=== PATIENT | male | born 1950 | race Caucasian/White ===

== ENCOUNTER 2023-01-30 12:54 | Emergency (ER) | payer OTHER ==
[~2023-01-30] VITALS: Ht 175.3 cm; Wt 88.6 kg
[2023-01-30 12:58] VITALS: PULSE 98; RESP 20; TEMP 98.5; O2SAT 95
[2023-01-30 13:21] LABS: CLARITY,URINE CLEAR (Clear); COLOR,URINE STRAW (Yellow); GLUCOSE, URINE NEGATIVE (Neg); KETONES,URINE NEGATIVE (Neg); LEUKOCYTE ESTERASE ,URINE NEGATIVE (Neg); NITRITES, URINE NEGATIVE (Neg); OCCULT BLOOD,URINE SMALL (Neg); PH,URINE 7.5 (4.8-8.0); PROTEIN,URINE >=300 mg/dl (Neg); UROBILINOGEN,URINE 0.2 E.U/dL (0.2-1.0)
[2023-01-30 13:24] LABS: UA COLLECTION TYPE CLN CATCH MIDSTREAM
[2023-01-30 13:29] LABS: SQUAMOUS EPITHELIAL CELL,UR FEW /LPF (FEW)
[2023-01-30 13:30] LABS: BACTERIA,URINE FEW /HPF (Neg); WBC,URINE 0-4 /HPF (0-4)
[2023-01-30 13:45] LABS: BASOPHILS # (AUTO) 0.1 X10'3 (0-0.2); BASOPHILS % (AUTO) 0.8 % (0-1); EOSINOPHILS # (AUTO) 0.1 X10'3 (0-0.9); HEMATOCRIT 48.9 % (42.0-52.0); HEMOGLOBIN 15.6 g/dl (14.0-17.9); LYMPHOCYTES % (AUTO) 7.2 % (21-51); MEAN CORPUSCULAR HEMOGLOBIN 26.7 PG (27.0-31.0); MEAN CORPUSCULAR VOLUME 83.4 FL (78-98); MEAN PLATELET VOLUME 7.4 FL (7.4-10.4); MONOCYTES # (AUTO) 0.8 X10'3 (0-0.9); MONOCYTES % (AUTO) 6.2 % (2-12); NEUTROPHILS # (AUTO) 11.5 X10'3 (1.8-7.7); NEUTROPHILS % (AUTO) 84.8 % (42-75); PLATELET COUNT 261 X10'3 (140-440); RED BLOOD COUNT 5.86 X10'6 (4.70-6.10); WHITE BLOOD COUNT 13.6 X10'3 (4.5-11.0)
[2023-01-30 13:56] LABS: ALANINE AMINOTRANSFERASE 39 U/L (12-78); ALBUMIN 3.9 G/DL (3.4-5.0); ALKALINE PHOSPHATASE 80 IU/L (46-116); ANION GAP 13 (8-16); ASPARTATE AMINO TRANSFERASE 24 U/L (10-37); BILIRUBIN,TOTAL 1.4 MG/DL (0.1-1.0); BLOOD UREA NITROGEN 22 MG/DL (7-18); BUN/CREATININE RATIO 15.4 (10.0-20.0); CALCIUM 10.1 MG/DL (8.5-10.1); CHLORIDE 104 MMOL/L (99-107); CREATININE 1.43 MG/DL (0.60-1.10); GLUCOSE 135 MG/DL (70-104); LIPASE 163 U/L (73-393); POTASSIUM 3.6 MMOL/L (3.5-5.1); SODIUM 141 MMOL/L (135-145); TOTAL PROTEIN 7.8 G/DL (6.4-8.2); eGFR 49 ML/MIN
== END 2023-01-30 16:26 | disposition home or self-care (01) ==
LOC: ER 12:54
DX: R33.9 Retention of urine, unspecified (principal); E78.00 Pure hypercholesterolemia, unspecified; I12.9 Hypertensive chronic kidney disease with stage 1 through stage 4 chronic kidney disease, or unspecified chronic kidney disease; N18.2 Chronic kidney disease, stage 2 (mild)
CPT/HCPCS: 36415; 51702; 80053; 81001; 83690; 85025; 99284; A4314; A4340; A4358

== ENCOUNTER 2023-08-14 12:10 | Observation (INO) | payer MEDICARE, OTHER ==
[~2023-08-14] VITALS: Ht 175.3 cm; Wt 120.0 kg
[2023-08-14 12:43] LABS: BASOPHILS # (AUTO) 0.1 X10'3 (0-0.2); BASOPHILS % (AUTO) 0.7 % (0-1); EOSINOPHILS # (AUTO) 0.4 X10'3 (0-0.9); EOSINOPHILS % (AUTO) 3.6 % (0-6); HEMATOCRIT 51.7 % (42.0-52.0); HEMOGLOBIN 16.4 g/dl (14.0-17.9); LYMPHOCYTES # (AUTO) 1.3 X10'3 (1.1-4.8); LYMPHOCYTES % (AUTO) 12.9 % (21-51); MEAN CORPUSCULAR HEMOGLOBIN 26.1 PG (27.0-31.0); MEAN CORPUSCULAR HGB CONC 31.8 g/dL (33.0-36.5); MEAN PLATELET VOLUME 6.9 FL (7.4-10.4); MONOCYTES # (AUTO) 0.9 X10'3 (0-0.9); MONOCYTES % (AUTO) 8.7 % (2-12); NEUTROPHILS # (AUTO) 7.5 X10'3 (1.8-7.7); NEUTROPHILS % (AUTO) 74.1 % (42-75); PLATELET COUNT 207 X10'3 (140-440); RED CELL DISTRIBUTION WIDTH 15.9 % (11.5-14.5); WHITE BLOOD COUNT 10.1 X10'3 (4.5-11.0)
[2023-08-14 13:07] LABS: ALBUMIN 3.2 G/DL (3.4-5.0); ANION GAP 4 (8-16); BLOOD UREA NITROGEN 26 MG/DL (7-18); BUN/CREATININE RATIO 17.2 (10.0-20.0); CALCIUM 9.1 MG/DL (8.5-10.1); CHLORIDE 102 MMOL/L (99-107); CREATININE 1.51 MG/DL (0.60-1.10); GLUCOSE 138 MG/DL (70-104); POTASSIUM 3.8 MMOL/L (3.5-5.1); PRO BRAIN NATRIURETIC PEPTIDE 901 PG/ML (0-125); SODIUM 139 MMOL/L (135-145); TOTAL CARBON DIOXIDE 32.6 MMOL/L (24-32); eCRCL 44 ML/MIN; eGFR 46 ML/MIN
[2023-08-14 15:02] LABS: URINE AMPHETAMINE SCREEN NEGATIVE (Neg); URINE BARBITUATE SCREEN NEGATIVE (Neg); URINE BENZODIAZEPINES SCREEN NEGATIVE (Neg); URINE CANNABINOID SCREEN NEGATIVE (Neg); URINE COCAINE SCREEN NEGATIVE (Neg); URINE METHADONE SCREEN NEGATIVE (Neg); URINE OPIATE SCREEN NEGATIVE (Neg); URINE PHENCYCLIDINE SCREEN NEGATIVE (Neg)
[2023-08-14] MEDS ORDERED: magnesium Cl slow-release 64mg tablet PO PRN (15:35)
[2023-08-14] MEDS ORDERED: potassium Cl 20 mEq SR tablet PO PRN ×2 (15:35)
[2023-08-14] MEDS ORDERED: magnesium 4gm in 100ml NS 100 ML IV PRN (15:35)
[2023-08-14] MEDS ORDERED: ondansetron/PF 4mg/2ml inj IV PRN (15:35)
[2023-08-14] MEDS ORDERED: magnesium 2GM in 50ml NS 50 ML IV PRN (15:35)
[2023-08-14] MEDS ORDERED: potassium Cl 40MEQ/1/2NS 520ml 520 ML IV PRN (15:35)
[2023-08-14] MEDS ORDERED: acetaminophen 325mg tablet PO PRN ×2 (15:35)
[2023-08-14] MEDS: aspirin 325mg tablet PO ONE (15:41)
[2023-08-14] MEDS: normal saline 1000ml 1,000 ML IV SCH (16:00)
[2023-08-14] MEDS ORDERED: insulin Lispro (HumaLOG) vial - multi-dose SQ SCH (16:10)
[2023-08-14] MEDS ORDERED: glucagon, human recombinant 1mg kit SUBCUT PRN (16:10)
[2023-08-14] MEDS ORDERED: DEXTROSE 15 GM of carb/4 tabs (each vial/BOTTLE has 4 tablets) PO PRN ×2 (16:10)
[2023-08-14] MEDS ORDERED: dextrose 50%-water 50ml dispensing syringe IV PRN ×2 (16:10)
[2023-08-14] MEDS: MESSAGE TO PHARMACY PO ONE (16:13)
[2023-08-14] MEDS ORDERED: FURO40TA4 PO (17:39)
[2023-08-14] MEDS ORDERED: GLIP10TA21 PO (17:39)
[2023-08-14] MEDS ORDERED: EMPA10TA PO (17:39)
[2023-08-14] MEDS ORDERED: OLME40TA18 PO (17:39)
[2023-08-14] MEDS ORDERED: TRIA50CA2 (17:39)
[2023-08-14] MEDS ORDERED: ATOR20TA66 PO (17:39)
[2023-08-14] MEDS ORDERED: TAMSULOSIN (17:39)
[2023-08-14] MEDS ORDERED: METF-438 PO (17:39)
[2023-08-14] MEDS: insulin glargine (Lantus) pen - multi-dose SQ SCH (19:45)
[2023-08-14] MEDS: enoxaparin 40mg/0.4ml syringe SQ SCH (19:48)
[2023-08-15 06:48] LABS: BASOPHILS # (AUTO) 0.1 X10'3 (0-0.2); BASOPHILS % (AUTO) 0.6 % (0-1); EOSINOPHILS # (AUTO) 0.5 X10'3 (0-0.9); EOSINOPHILS % (AUTO) 4.9 % (0-6); HEMATOCRIT 47.2 % (42.0-52.0); HEMOGLOBIN 15.3 g/dl (14.0-17.9); LYMPHOCYTES # (AUTO) 1.2 X10'3 (1.1-4.8); LYMPHOCYTES % (AUTO) 12.6 % (21-51); MEAN CORPUSCULAR HEMOGLOBIN 26.3 PG (27.0-31.0); MEAN CORPUSCULAR HGB CONC 32.3 g/dL (33.0-36.5); MEAN CORPUSCULAR VOLUME 81.2 FL (78-98); MEAN PLATELET VOLUME 7.3 FL (7.4-10.4); MONOCYTES # (AUTO) 0.7 X10'3 (0-0.9); MONOCYTES % (AUTO) 7.5 % (2-12); NEUTROPHILS # (AUTO) 7.1 X10'3 (1.8-7.7); NEUTROPHILS % (AUTO) 74.4 % (42-75); PLATELET COUNT 213 X10'3 (140-440); RED BLOOD COUNT 5.81 X10'6 (4.70-6.10); RED CELL DISTRIBUTION WIDTH 15.7 % (11.5-14.5); WHITE BLOOD COUNT 9.5 X10'3 (4.5-11.0)
[2023-08-15 07:01] LABS: ALANINE AMINOTRANSFERASE 17 U/L (12-78); ALBUMIN 2.7 G/DL (3.4-5.0); ALBUMIN/GLOBULIN RATIO 0.8 (1.1-1.5); ALKALINE PHOSPHATASE 81 IU/L (46-116); ANION GAP 4 (8-16); ASPARTATE AMINO TRANSFERASE 11 U/L (10-37); BILIRUBIN,TOTAL 0.7 MG/DL (0.1-1.0); BLOOD UREA NITROGEN 24 MG/DL (7-18); BUN/CREATININE RATIO 18.9 (10.0-20.0); CALCIUM 8.7 MG/DL (8.5-10.1); CHLORIDE 107 MMOL/L (99-107); CREATININE 1.27 MG/DL (0.60-1.10); GLUCOSE 131 MG/DL (70-104); POTASSIUM 3.9 MMOL/L (3.5-5.1); SODIUM 140 MMOL/L (135-145); TOTAL CARBON DIOXIDE 28.8 MMOL/L (24-32); TOTAL PROTEIN 6.3 G/DL (6.4-8.2); eCRCL 53 ML/MIN; eGFR 56 ML/MIN
[2023-08-15 08:30] VITALS: RESP 20; O2SAT 96
[2023-08-15 09:30] VITALS: BP 197/77; PULSE 68; RESP 20; TEMP 97.7; O2SAT 92
[2023-08-15] MEDS: aspirin 81mg, enteric-coated 1 TAB TABLET.DR PO SCH (11:44)
[2023-08-15] MEDS: clopidogrel 75mg tablet PO SCH (11:44)
[2023-08-15 11:48] VITALS: BP_SYST 181; PULSE 75
[2023-08-15] MEDS: losartan 50mg tablet PO SCH (11:48)
[2023-08-15 12:13] VITALS: RESP 23; O2SAT 96
[2023-08-15] MEDS ORDERED: ASPI-1071 PO (12:58)
[2023-08-15] MEDS ORDERED: FURO40TA4 PO (12:58)
== END 2023-08-15 17:30 | disposition home or self-care (01) ==
LOC: ER 12:11 → ED HOLD 15:40 → ORTHO 4S 08-15 07:10
PROVIDERS: ADMIT Internal Medicine; ATTEND Internal Medicine
DX: G45.9 Transient cerebral ischemic attack, unspecified (principal); I13.0 Hypertensive heart and chronic kidney disease with heart failure and stage 1 through stage 4 chronic kidney disease, or unspecified chronic kidney disease; E11.22 Type 2 diabetes mellitus with diabetic chronic kidney disease; N18.30 Chronic kidney disease, stage 3 unspecified; I50.9 Heart failure, unspecified; N40.0 Benign prostatic hyperplasia without lower urinary tract symptoms; E78.00 Pure hypercholesterolemia, unspecified; H53.8 Other visual disturbances; Z79.82 Long term (current) use of aspirin; Z79.84 Long term (current) use of oral hypoglycemic drugs; Z79.899 Other long term (current) drug therapy
CPT/HCPCS: 36415; 70450; 70544; 70551; 71045; 80048; 80053; 80305; 82948; 83880; 84484; 85025; 93005; 93306; 93880; 96360; 96361; 96372; 97116; 97161; 97530; 99285; G0378; J1650; J1815; J7030

== ENCOUNTER 2024-01-23 22:18 | Inpatient (IN) | payer MEDICARE, OTHER ==
[~2024-01-23] VITALS: Ht 182.9 cm; Wt 116.0 kg
[~2024-01-23 22:18] MED LIST: ASPI81TA52 PO; ATOR20TA66 PO; EMPA10TA PO; ESOM40CA66 PO; FINE10TA PO; FLO0.4C PO; FURO40TA4 PO; GLIP10TA21 PO; METF-438 PO; NITR100C PO; OLME40TA18 PO; TRIA50CA2 PO
[2024-01-23] MEDS: hydrALAZINE 20mg/ml inj. IV ONE (22:35)
[2024-01-23 22:42] LABS: BASOPHILS # (AUTO) 0.1 X10'3 (0-0.2); HEMOGLOBIN 15.9 g/dl (14.0-17.9)
[2024-01-23 22:44] LABS: EOSINOPHILS # (AUTO) 0.2 X10'3 (0-0.9); EOSINOPHILS % (AUTO) 1.5 % (0-6); HEMATOCRIT 49.9 % (42.0-52.0); LYMPHOCYTES # (AUTO) 0.9 X10'3 (1.1-4.8); LYMPHOCYTES % (AUTO) 7.3 % (21-51); MEAN CORPUSCULAR HEMOGLOBIN 26.2 PG (27.0-31.0); MEAN CORPUSCULAR HGB CONC 31.8 g/dL (33.0-36.5); MEAN CORPUSCULAR VOLUME 82.4 FL (78-98); MEAN PLATELET VOLUME 7.5 FL (7.4-10.4); MONOCYTES # (AUTO) 0.8 X10'3 (0-0.9); MONOCYTES % (AUTO) 6.8 % (2-12); NEUTROPHILS # (AUTO) 9.9 X10'3 (1.8-7.7); NEUTROPHILS % (AUTO) 83.4 % (42-75); PLATELET COUNT 196 X10'3 (140-440); RED BLOOD COUNT 6.06 X10'6 (4.70-6.10); RED CELL DISTRIBUTION WIDTH 17.9 % (11.5-14.5); WHITE BLOOD COUNT 11.9 X10'3 (4.5-11.0)
[2024-01-23 22:49] LABS: ALANINE AMINOTRANSFERASE 45 U/L (12-78); ALBUMIN 3.2 G/DL (3.4-5.0); ALBUMIN/GLOBULIN RATIO 0.9 (1.1-1.5); ALKALINE PHOSPHATASE 67 IU/L (46-116); ANION GAP 8 (8-16); ASPARTATE AMINO TRANSFERASE 30 U/L (10-37); BILIRUBIN,TOTAL 1.3 MG/DL (0.1-1.0); BLOOD UREA NITROGEN 21 MG/DL (7-18); BUN/CREATININE RATIO 11.7 (10.0-20.0); CALCIUM 9.5 MG/DL (8.5-10.1); CHLORIDE 103 MMOL/L (99-107); GLUCOSE 146 MG/DL (70-104); POTASSIUM 4.5 MMOL/L (3.5-5.1); SODIUM 136 MMOL/L (135-145); TOTAL CARBON DIOXIDE 25.4 MMOL/L (24-32); TOTAL PROTEIN 6.7 G/DL (6.4-8.2); eCRCL 41 ML/MIN; eGFR 37 ML/MIN
[2024-01-23 22:57] LABS: LIPASE 80 U/L (16-77); PRO BRAIN NATRIURETIC PEPTIDE 4300 PG/ML (0-125)
[2024-01-23] MEDS: morphine 4 MG/ML inj SYRINge IV ONE (23:26)
[2024-01-23] MEDS: ondansetron/PF 4mg/2ml inj IV ONE (23:26)
[2024-01-23] MEDS: niCARDipine-NS 40mg/200ml IVPB 200 ML IV SCH (23:27)
[2024-01-24] MEDS ORDERED: FURO-149 PO (01:49)
[2024-01-24] MEDS ORDERED: ondansetron/PF 4mg/2ml inj IV PRN (02:25)
[2024-01-24] MEDS ORDERED: magnesium Cl slow-release 64mg tablet PO PRN (02:25)
[2024-01-24] MEDS ORDERED: bisacodyl 10mg suppository rectal RC PRN (02:25)
[2024-01-24] MEDS ORDERED: potassium Cl 40MEQ/1/2NS 520ml 520 ML IV PRN (02:25)
[2024-01-24] MEDS ORDERED: acetaminophen 325mg tablet PO PRN (02:25)
[2024-01-24] MEDS ORDERED: potassium Cl 20 mEq SR tablet PO PRN ×2 (02:25)
[2024-01-24] MEDS ORDERED: HYDROcodone/acetaminophen 5mg/325mg tablet PO PRN (02:25)
[2024-01-24] MEDS ORDERED: HYDROcodone/acetaminophen 10/325mg tab PO PRN (02:25)
[2024-01-24] MEDS ORDERED: PERFLUTREN PROTEIN-A MICROSPHR (Optison) 0.22 MG/ML 3ML VIAL IV PRN (02:25)
[2024-01-24] MEDS ORDERED: magnesium sulf-water 4G/100mL 100 ML IV PRN (02:25)
[2024-01-24] MEDS ORDERED: mag hydrox/Alum hydrox/simeth 30ml oral suspension PO PRN (02:25)
[2024-01-24 02:59] LABS: HEMOGLOBIN A1C 6.8 % (4.5-6.2)
[2024-01-24 03:12] LABS: CHOL/HDL RATIO 1.7 (0.00-4.99); CHOLESTEROL 108 MG/DL (0-200); HDL CHOLESTEROL 63 MG/DL (35-60); LDL CHOLESTEROL 34 MG/DL (50-100); THYROID STIMULATING HORMONE 2.72 ulU/ml (0.34-4.50); TRIGLYCERIDES 62 MG/DL (20-135)
[2024-01-24 03:24] LABS: MAGNESIUM 2.2 MG/DL (1.5-2.4)
[2024-01-24] MEDS: furosemide 10 MG/1 ML 10ml inj IV SCH (08:00)
[2024-01-24] MEDS: docusate sod 100mg capsule PO SCH (08:00)
[2024-01-24] MEDS: heparin, porcine 5000 units/ml vial SQ SCH (08:00)
[2024-01-24 08:09] LABS: CLARITY,URINE Bloody (Clear); COLOR,URINE RED (Yellow); UA COLLECTION TYPE OTHER
[2024-01-24 08:15] LABS: RBC,URINE TNTC /HPF (0-2)
[2024-01-24 08:16] LABS: WBC,URINE 50-100 /HPF (0-4)
[2024-01-24 08:17] LABS: BACTERIA,URINE FEW /HPF (Neg); SQUAMOUS EPITHELIAL CELL,UR FEW /LPF (FEW)
[2024-01-24 08:19] LABS: WBC CLUMPS,URINE FEW /HPF (NEGATIVE)
[2024-01-24] MEDS: losartan 50mg tablet PO SCH (16:14)
[2024-01-24] MEDS: atorvastatin 20mg tablet PO SCH (16:44)
[2024-01-24] MEDS: aspirin 81mg, enteric-coated 1 TAB TABLET.DR PO SCH (16:44)
[2024-01-24 17:51] VITALS: BP 137/77; PULSE 79; RESP 22; TEMP 97; O2SAT 97
[2024-01-24 17:56] VITALS: RESP 22; O2SAT 97
[2024-01-24 18:00] VITALS: BP 176/79; PULSE 76; RESP 18; TEMP 97.4; O2SAT 96
[2024-01-24 20:00] VITALS: RESP 14; O2SAT 100
[2024-01-24 22:00] VITALS: BP 179/82; PULSE 80; RESP 14; TEMP 97.5; O2SAT 100
[2024-01-24] MEDS: hydrALAZINE 20mg/ml inj. IV PRN (23:05)
[2024-01-25 00:05] VITALS: BP 129/64; PULSE 71
[2024-01-25 06:06] LABS: BASOPHILS % (AUTO) 0.5 % (0-1); EOSINOPHILS # (AUTO) 0.1 X10'3 (0-0.9); EOSINOPHILS % (AUTO) 1.1 % (0-6); HEMOGLOBIN 14.8 g/dl (14.0-17.9); LYMPHOCYTES # (AUTO) 0.7 X10'3 (1.1-4.8); LYMPHOCYTES % (AUTO) 7.2 % (21-51); MEAN CORPUSCULAR HEMOGLOBIN 26.5 PG (27.0-31.0); MEAN CORPUSCULAR HGB CONC 32.2 g/dL (33.0-36.5); MEAN CORPUSCULAR VOLUME 82.3 FL (78-98); MONOCYTES # (AUTO) 0.7 X10'3 (0-0.9); MONOCYTES % (AUTO) 7.4 % (2-12); NEUTROPHILS # (AUTO) 7.9 X10'3 (1.8-7.7); NEUTROPHILS % (AUTO) 83.8 % (42-75); PLATELET COUNT 166 X10'3 (140-440); RED BLOOD COUNT 5.59 X10'6 (4.70-6.10); RED CELL DISTRIBUTION WIDTH 17.6 % (11.5-14.5); WHITE BLOOD COUNT 9.4 X10'3 (4.5-11.0)
[2024-01-25 06:31] LABS: ALANINE AMINOTRANSFERASE 34 U/L (12-78); ALBUMIN 2.6 G/DL (3.4-5.0); ALBUMIN/GLOBULIN RATIO 0.8 (1.1-1.5); ALKALINE PHOSPHATASE 58 IU/L (46-116); ANION GAP 8 (8-16); ASPARTATE AMINO TRANSFERASE 22 U/L (10-37); BILIRUBIN,TOTAL 1.8 MG/DL (0.1-1.0); BLOOD UREA NITROGEN 18 MG/DL (7-18); CALCIUM 9.4 MG/DL (8.5-10.1); CHLORIDE 102 MMOL/L (99-107); CREATININE 1.29 MG/DL (0.60-1.10); GLUCOSE 129 MG/DL (70-104); MAGNESIUM 2.1 MG/DL (1.5-2.4); POTASSIUM 3.9 MMOL/L (3.5-5.1); SODIUM 134 MMOL/L (135-145); TOTAL CARBON DIOXIDE 24.5 MMOL/L (24-32); eCRCL 57 ML/MIN; eGFR 55 ML/MIN
[2024-01-25] MEDS: FINERENONE 10 MG PO SCH (08:00)
[2024-01-25] MEDS: furosemide 10 MG/1 ML 10ml inj IV SCH (08:03)
[2024-01-25] MEDS: tamsulosin 0.4mg capsule PO SCH (08:05)
[2024-01-25] MEDS: pantoprazole 40mg Tablet.DR PO SCH (08:05)
[2024-01-25] MEDS: magnesium hydroxide 30ml (MOM) UD suspension PO PRN (08:18)
[2024-01-25 13:56] LABS: % FREE PSA 27.7 % (.); PROSTATE SPECIFIC AG, SERUM 8.4 ng/mL (0.0-4.0); PSA, FREE 2.33 ng/mL
[2024-01-25] MEDS ORDERED: glucagon, human recombinant 1mg kit SUBCUT PRN (14:55)
[2024-01-25] MEDS ORDERED: DEXTROSE 15 GM of carb/4 tabs (each vial/BOTTLE has 4 tablets) PO PRN ×2 (14:55)
[2024-01-25] MEDS ORDERED: dextrose 50%-water 50ml dispensing syringe IV PRN ×2 (14:55)
[2024-01-25] MEDS: INSULIN LISPRO 100 UNIT/ML INSULN.PEN MULTI-DOSE SQ SCH (17:00)
[2024-01-25 18:00] VITALS: BP 154/56; PULSE 77; RESP 18; TEMP 97.9; O2SAT 95
[2024-01-25 22:00] VITALS: BP 161/68; PULSE 74; RESP 20; TEMP 97.9; O2SAT 94
[2024-01-26 05:00] VITALS: BP 177/69; PULSE 85; RESP 20; TEMP 98; O2SAT 95
[2024-01-26 06:31] LABS: BASOPHILS # (AUTO) 0.1 X10'3 (0-0.2); BASOPHILS % (AUTO) 0.7 % (0-1); EOSINOPHILS # (AUTO) 0.1 X10'3 (0-0.9); EOSINOPHILS % (AUTO) 1.6 % (0-6); HEMATOCRIT 46.8 % (42.0-52.0); HEMOGLOBIN 14.8 g/dl (14.0-17.9); LYMPHOCYTES # (AUTO) 0.8 X10'3 (1.1-4.8); LYMPHOCYTES % (AUTO) 9.2 % (21-51); MEAN CORPUSCULAR HEMOGLOBIN 25.8 PG (27.0-31.0); MEAN CORPUSCULAR HGB CONC 31.6 g/dL (33.0-36.5); MEAN CORPUSCULAR VOLUME 81.6 FL (78-98); MEAN PLATELET VOLUME 8.3 FL (7.4-10.4); MONOCYTES # (AUTO) 0.7 X10'3 (0-0.9); MONOCYTES % (AUTO) 7.6 % (2-12); NEUTROPHILS # (AUTO) 7.4 X10'3 (1.8-7.7); NEUTROPHILS % (AUTO) 80.9 % (42-75); PLATELET COUNT 175 X10'3 (140-440); RED BLOOD COUNT 5.74 X10'6 (4.70-6.10); RED CELL DISTRIBUTION WIDTH 17.5 % (11.5-14.5); WHITE BLOOD COUNT 9.1 X10'3 (4.5-11.0)
[2024-01-26 06:45] LABS: ALANINE AMINOTRANSFERASE 32 U/L (12-78); ALBUMIN 2.8 G/DL (3.4-5.0); ALBUMIN/GLOBULIN RATIO 0.8 (1.1-1.5); ALKALINE PHOSPHATASE 59 IU/L (46-116); ANION GAP 8 (8-16); ASPARTATE AMINO TRANSFERASE 21 U/L (10-37); BILIRUBIN,TOTAL 1.7 MG/DL (0.1-1.0); BLOOD UREA NITROGEN 21 MG/DL (7-18); CALCIUM 9.6 MG/DL (8.5-10.1); CHLORIDE 101 MMOL/L (99-107); CREATININE 1.31 MG/DL (0.60-1.10); GLUCOSE 130 MG/DL (70-104); MAGNESIUM 2.2 MG/DL (1.5-2.4); SODIUM 135 MMOL/L (135-145); TOTAL CARBON DIOXIDE 26.1 MMOL/L (24-32); TOTAL PROTEIN 6.5 G/DL (6.4-8.2); eCRCL 56 ML/MIN; eGFR 54 ML/MIN
[2024-01-26 08:00] VITALS: RESP 16; O2SAT 95
[2024-01-26] MEDS: HYDROcodone/acetaminophen 5mg/325mg tablet PO PRN (08:49)
[2024-01-26 10:00] VITALS: BP 153/54; PULSE 71; RESP 20; TEMP 98.1; O2SAT 98
[2024-01-26] MEDS: ciprofloxacin lact 400MG/200ML 200 ML IV SCH (12:44)
[2024-01-26 18:00] VITALS: BP 168/71; PULSE 74; RESP 18; TEMP 98.2; O2SAT 98
[2024-01-26] MEDS: ampicillin inj 1 GM in normal saline 100ml IV soln 100 ML IV SCH (18:51)
[2024-01-26 20:00] VITALS: RESP 18; O2SAT 98
[2024-01-26 22:00] VITALS: BP 156/61; PULSE 69; RESP 16; TEMP 97.8; O2SAT 98
[2024-01-27 05:00] VITALS: PULSE 92; RESP 18; TEMP 97; O2SAT 93
[2024-01-27 05:10] VITALS: RESP 16
[2024-01-27] MEDS: HYDROcodone/acetaminophen 10/325mg tab PO PRN (05:10)
[2024-01-27 05:59] LABS: BASOPHILS % (AUTO) 0.5 % (0-1); EOSINOPHILS # (AUTO) 0.2 X10'3 (0-0.9); HEMATOCRIT 45.3 % (42.0-52.0); HEMOGLOBIN 14.4 g/dl (14.0-17.9); LYMPHOCYTES # (AUTO) 0.7 X10'3 (1.1-4.8); LYMPHOCYTES % (AUTO) 9.4 % (21-51); MEAN CORPUSCULAR HEMOGLOBIN 25.8 PG (27.0-31.0); MEAN CORPUSCULAR HGB CONC 31.8 g/dL (33.0-36.5); MONOCYTES # (AUTO) 0.9 X10'3 (0-0.9); NEUTROPHILS % (AUTO) 77.1 % (42-75); PLATELET COUNT 172 X10'3 (140-440); RED BLOOD COUNT 5.58 X10'6 (4.70-6.10); RED CELL DISTRIBUTION WIDTH 17.3 % (11.5-14.5); WHITE BLOOD COUNT 7.8 X10'3 (4.5-11.0)
[2024-01-27 06:22] LABS: ALANINE AMINOTRANSFERASE 24 U/L (12-78); ALBUMIN 2.5 G/DL (3.4-5.0); ALBUMIN/GLOBULIN RATIO 0.7 (1.1-1.5); ALKALINE PHOSPHATASE 53 IU/L (46-116); ANION GAP 6 (8-16); ASPARTATE AMINO TRANSFERASE 17 U/L (10-37); BILIRUBIN,TOTAL 1.2 MG/DL (0.1-1.0); BLOOD UREA NITROGEN 20 MG/DL (7-18); BUN/CREATININE RATIO 18.9 (10.0-20.0); CALCIUM 9.2 MG/DL (8.5-10.1); CHLORIDE 103 MMOL/L (99-107); CREATININE 1.06 MG/DL (0.60-1.10); GLUCOSE 132 MG/DL (70-104); MAGNESIUM 2.3 MG/DL (1.5-2.4); POTASSIUM 3.7 MMOL/L (3.5-5.1); SODIUM 136 MMOL/L (135-145); TOTAL CARBON DIOXIDE 26.9 MMOL/L (24-32); eCRCL 69 ML/MIN; eGFR 69 ML/MIN
[2024-01-27 07:10] VITALS: BP 171/75
[2024-01-27 07:22] VITALS: BP_SYST 171; PULSE 78
[2024-01-27] MEDS: furosemide 20 MG/2 ML vial IV SCH (07:23)
[2024-01-27 17:11] LABS: LIPASE 92 U/L (16-77)
== END 2024-01-27 19:05 | disposition home or self-care (01) | DRG 698 ==
LOC: ER 22:19 → ED HOLD 01-24 02:29 → ORTHO 4S 01-24 16:50
PROVIDERS: ADMIT Internal Medicine Critical Care Medicine; ATTEND Internal Medicine
DX: S37.39XA Other injury of urethra, initial encounter (principal); I21.A1 Myocardial infarction type 2; I50.33 Acute on chronic diastolic (congestive) heart failure; I13.0 Hypertensive heart and chronic kidney disease with heart failure and stage 1 through stage 4 chronic kidney disease, or unspecified chronic kidney disease; R33.8 Other retention of urine; N40.1 Benign prostatic hyperplasia with lower urinary tract symptoms; E11.22 Type 2 diabetes mellitus with diabetic chronic kidney disease; E78.00 Pure hypercholesterolemia, unspecified; N18.9 Chronic kidney disease, unspecified; X58.XXXA Exposure to other specified factors, initial encounter; Y93.89 Activity, other specified; Y92.89 Other specified places as the place of occurrence of the external cause; Y99.8 Other external cause status; Z79.82 Long term (current) use of aspirin; Z79.84 Long term (current) use of oral hypoglycemic drugs; Z79.899 Other long term (current) drug therapy; Z91.148 Patient's other noncompliance with medication regimen for other reason
CPT/HCPCS: 36415; 71045; 80053; 80061; 81001; 82948; 83036; 83690; 83735; 83880; 84132; 84153; 84154; 84443; 84484; 85025; 87077; 87081; 87088; 87186; 93005; 93306; 96374; 96375; 97116; 97161; 97530; 99285; A4314; A4340; A4358; C1758; G0378; J0290; J0360; J0744; J1644; J1815; J1940; J2270; J2405; J3490; J7040

== ENCOUNTER 2024-02-06 20:13 | Inpatient (IN) | payer MEDICARE ==
[~2024-02-06] VITALS: Ht 175.3 cm; Wt 114.4 kg
[~2024-02-06 20:13] MED LIST changes: -EMPA10TA PO; -FURO40TA4 PO; -GLIP10TA21 PO; -NITR100C PO; -TRIA50CA2 PO
[2024-02-06 20:53] LABS: BASOPHILS # (AUTO) 0.1 X10'3 (0-0.2); EOSINOPHILS # (AUTO) 0.2 X10'3 (0-0.9); EOSINOPHILS % (AUTO) 1.8 % (0-6); HEMATOCRIT 42.9 % (42.0-52.0); HEMOGLOBIN 13.8 g/dl (14.0-17.9); LYMPHOCYTES # (AUTO) 1.2 X10'3 (1.1-4.8); LYMPHOCYTES % (AUTO) 10.6 % (21-51); MEAN CORPUSCULAR HEMOGLOBIN 26.4 PG (27.0-31.0); MEAN CORPUSCULAR HGB CONC 32.1 g/dL (33.0-36.5); MEAN CORPUSCULAR VOLUME 82.2 FL (78-98); MEAN PLATELET VOLUME 7.5 FL (7.4-10.4); MONOCYTES # (AUTO) 0.8 X10'3 (0-0.9); MONOCYTES % (AUTO) 7.1 % (2-12); NEUTROPHILS # (AUTO) 8.7 X10'3 (1.8-7.7); NEUTROPHILS % (AUTO) 79.5 % (42-75); PLATELET COUNT 218 X10'3 (140-440); RED BLOOD COUNT 5.22 X10'6 (4.70-6.10); RED CELL DISTRIBUTION WIDTH 17.5 % (11.5-14.5); WHITE BLOOD COUNT 10.9 X10'3 (4.5-11.0)
[2024-02-06 21:10] LABS: ALANINE AMINOTRANSFERASE 40 U/L (12-78); ALBUMIN 2.8 G/DL (3.4-5.0); ALKALINE PHOSPHATASE 63 IU/L (46-116); ANION GAP 9 (8-16); ASPARTATE AMINO TRANSFERASE 26 U/L (10-37); BILIRUBIN,TOTAL 1.3 MG/DL (0.1-1.0); BLOOD UREA NITROGEN 20 MG/DL (7-18); BUN/CREATININE RATIO 16.3 (10.0-20.0); CHLORIDE 106 MMOL/L (99-107); CREATININE 1.23 MG/DL (0.60-1.10); GLUCOSE 102 MG/DL (70-104); SODIUM 138 MMOL/L (135-145); TOTAL CARBON DIOXIDE 23.3 MMOL/L (24-32); TOTAL PROTEIN 5.6 G/DL (6.4-8.2); eCRCL 54 ML/MIN; eGFR 58 ML/MIN
[2024-02-06 21:16] LABS: PRO BRAIN NATRIURETIC PEPTIDE 6417 PG/ML (0-125)
[2024-02-06 21:21] LABS: POTASSIUM 3.7 MMOL/L (3.5-5.1)
[2024-02-06] MEDS ORDERED: furosemide 10 MG/1 ML 10ml inj IV ONE (22:45)
[2024-02-06] MEDS: furosemide 10 MG/1 ML 10ml inj IV ONE (23:29)
[2024-02-07] MEDS ORDERED: METF-900 PO (01:51)
[2024-02-07] MEDS ORDERED: potassium Cl 20 mEq SR tablet PO PRN (03:10)
[2024-02-07] MEDS ORDERED: albuterol 2.5 MG/3 ML nebule NEB PRN (03:10)
[2024-02-07] MEDS ORDERED: potassium Cl 40MEQ/1/2NS 520ml 520 ML IV PRN (03:10)
[2024-02-07] MEDS ORDERED: acetaminophen 325mg tablet PO PRN (03:10)
[2024-02-07] MEDS ORDERED: ondansetron/PF 4mg/2ml inj IV PRN (03:10)
[2024-02-07] MEDS ORDERED: magnesium Cl slow-release 64mg tablet PO PRN (03:10)
[2024-02-07] MEDS: PERFLUTREN PROTEIN-A MICROSPHR (Optison) 0.22 MG/ML 3ML VIAL IV ONE ×2 (03:10→08:46)
[2024-02-07] MEDS ORDERED: magnesium sulf-water 4G/100mL 100 ML IV PRN (03:10)
[2024-02-07] MEDS ORDERED: METF-438 PO (03:35)
[2024-02-07 03:37] LABS: CHOL/HDL RATIO 1.6 (0.00-4.99); CHOLESTEROL 89 MG/DL (0-200); HDL CHOLESTEROL 55 MG/DL (35-60); LDL CHOLESTEROL 30 MG/DL (50-100); TRIGLYCERIDES 35 MG/DL (20-135)
[2024-02-07 03:40] VITALS: PULSE 49; RESP 18; O2SAT 99
[2024-02-07] MEDS: pantoprazole 40mg Tablet.DR PO SCH (07:30)
[2024-02-07 07:41] LABS: APTT 27 SECONDS (22-32); INR 1.1 INR; PROTHROMBIN TIME 11.4 SECONDS (9.0-12.0)
[2024-02-07 07:43] LABS: POTASSIUM 3.4 MMOL/L (3.5-5.1)
[2024-02-07] MEDS: docusate sod 100mg capsule PO SCH (08:00)
[2024-02-07] MEDS ORDERED: furosemide 10 MG/1 ML 10ml inj IV SCH (08:00)
[2024-02-07] MEDS: tamsulosin 0.4mg capsule PO SCH (08:00)
[2024-02-07] MEDS: losartan 50mg tablet PO SCH (08:00)
[2024-02-07] MEDS ORDERED: non-formulary drug (Metformin HCl 1 TAB) PO SCH (08:00)
[2024-02-07] MEDS: heparin, porcine 5000 units/ml vial SQ SCH (08:00)
[2024-02-07] MEDS: atorvastatin 20mg tablet PO SCH (08:00)
[2024-02-07] MEDS: aspirin 81mg, enteric-coated 1 TAB TABLET.DR PO SCH (08:00)
[2024-02-07] MEDS ORDERED: metFORMIN 500mg tablet PO SCH (08:00)
[2024-02-07] MEDS ORDERED: DEXTROSE 15 GM of carb/4 tabs (each vial/BOTTLE has 4 tablets) PO PRN ×2 (10:05)
[2024-02-07] MEDS ORDERED: dextrose 50%-water 50ml dispensing syringe IV PRN ×2 (10:05)
[2024-02-07] MEDS ORDERED: glucagon, human recombinant 1mg kit SUBCUT PRN (10:05)
[2024-02-07 10:20] VITALS: PULSE 52; RESP 18; O2SAT 98
[2024-02-07 11:27] LABS: BILIRUBIN,URINE NEGATIVE (Neg); CLARITY,URINE SLIGHTLY CLOUDY (Clear); COLOR,URINE YELLOW (Yellow); GLUCOSE, URINE NEGATIVE (Neg); KETONES,URINE NEGATIVE (Neg); LEUKOCYTE ESTERASE ,URINE MODERATE (Neg); NITRITES, URINE NEGATIVE (Neg); OCCULT BLOOD,URINE SMALL (Neg); PROTEIN,URINE 30 mg/dl (Neg)
[2024-02-07 11:32] LABS: UA COLLECTION TYPE FOLEY CATH
[2024-02-07 11:38] LABS: BACTERIA,URINE 4+ /HPF (Neg); MUCUS STRANDS NONE SEEN /LPF (Neg); SQUAMOUS EPITHELIAL CELL,UR FEW /LPF (FEW); WBC CLUMPS,URINE MODERATE /HPF (NEGATIVE); WBC,URINE 50-100 /HPF (0-4)
[2024-02-07] MEDS: INSULIN LISPRO 100 UNIT/ML INSULN.PEN MULTI-DOSE SQ SCH (12:41)
[2024-02-07] MEDS: potassium Cl 20 mEq SR tablet PO PRN (14:22)
[2024-02-07 19:10] VITALS: BP 140/70; PULSE 78; RESP 18; TEMP 97.9; O2SAT 99
[2024-02-07] MEDS: HYDROcodone/acetaminophen 5mg/325mg tablet PO PRN (21:15)
[2024-02-07 22:00] VITALS: BP 145/61; PULSE 62; RESP 18; TEMP 97.2; O2SAT 99
[2024-02-08] VITALS (7 sets, daily range): BP systolic 128–168; BP diastolic 54–71; PULSE 60–70; RESP 16–20; TEMP 97.4–98.4; O2SAT 94–98
[2024-02-08 06:48] LABS: BASOPHILS # (AUTO) 0.1 X10'3 (0-0.2); BASOPHILS % (AUTO) 0.9 % (0-1); EOSINOPHILS # (AUTO) 0.3 X10'3 (0-0.9); EOSINOPHILS % (AUTO) 2.9 % (0-6); HEMATOCRIT 43.3 % (42.0-52.0); HEMOGLOBIN 14.1 g/dl (14.0-17.9); LYMPHOCYTES # (AUTO) 0.9 X10'3 (1.1-4.8); LYMPHOCYTES % (AUTO) 9.8 % (21-51); MEAN CORPUSCULAR HEMOGLOBIN 26.6 PG (27.0-31.0); MEAN CORPUSCULAR HGB CONC 32.5 g/dL (33.0-36.5); MEAN CORPUSCULAR VOLUME 81.8 FL (78-98); MEAN PLATELET VOLUME 7.8 FL (7.4-10.4); MONOCYTES # (AUTO) 0.8 X10'3 (0-0.9); MONOCYTES % (AUTO) 8.1 % (2-12); NEUTROPHILS # (AUTO) 7.3 X10'3 (1.8-7.7); NEUTROPHILS % (AUTO) 78.3 % (42-75); PLATELET COUNT 224 X10'3 (140-440); RED BLOOD COUNT 5.29 X10'6 (4.70-6.10); RED CELL DISTRIBUTION WIDTH 17.6 % (11.5-14.5); WHITE BLOOD COUNT 9.3 X10'3 (4.5-11.0)
[2024-02-08 07:07] LABS: ALANINE AMINOTRANSFERASE 36 U/L (12-78); ALBUMIN 2.8 G/DL (3.4-5.0); ALBUMIN/GLOBULIN RATIO 0.9 (1.1-1.5); ALKALINE PHOSPHATASE 65 IU/L (46-116); ANION GAP 7 (8-16); ASPARTATE AMINO TRANSFERASE 17 U/L (10-37); BLOOD UREA NITROGEN 25 MG/DL (7-18); BUN/CREATININE RATIO 18.7 (10.0-20.0); CALCIUM 9.3 MG/DL (8.5-10.1); CHLORIDE 106 MMOL/L (99-107); CREATININE 1.34 MG/DL (0.60-1.10); GLUCOSE 127 MG/DL (70-104); MAGNESIUM 1.9 MG/DL (1.5-2.4); POTASSIUM 3.9 MMOL/L (3.5-5.1); SODIUM 140 MMOL/L (135-145); TOTAL CARBON DIOXIDE 27.5 MMOL/L (24-32); TOTAL PROTEIN 5.9 G/DL (6.4-8.2); eCRCL 50 ML/MIN; eGFR 52 ML/MIN
[2024-02-08] MEDS: furosemide 20 MG/2 ML vial IV SCH ×2 (07:33→19:38)
[2024-02-08] MEDS ORDERED: furosemide 10 MG/1 ML 10ml inj IV SCH (08:00)
[2024-02-08] MEDS: CefTRIAXone/D5W-Rocephin 1gm 50 ML IV SCH (09:30)
[2024-02-08] MEDS: linezolid 600mg tablet PO SCH (19:39)
[2024-02-09] VITALS (8 sets, daily range): BP systolic 138–169; BP diastolic 49–76; PULSE 58–71; RESP 16–20; TEMP 97.5–98.2; O2SAT 91–98
[2024-02-09 05:57] LABS: % FREE PSA 20.2 % (.); PROSTATE SPECIFIC AG, SERUM 4.1 ng/mL (0.0-4.0); PSA, FREE 0.83 ng/mL
[2024-02-09 05:59] LABS: BASOPHILS # (AUTO) 0.1 X10'3 (0-0.2); BASOPHILS % (AUTO) 0.9 % (0-1); EOSINOPHILS # (AUTO) 0.2 X10'3 (0-0.9); EOSINOPHILS % (AUTO) 2.8 % (0-6); HEMATOCRIT 42.5 % (42.0-52.0); HEMOGLOBIN 13.5 g/dl (14.0-17.9); LYMPHOCYTES # (AUTO) 0.9 X10'3 (1.1-4.8); LYMPHOCYTES % (AUTO) 11.6 % (21-51); MEAN CORPUSCULAR HEMOGLOBIN 25.7 PG (27.0-31.0); MEAN CORPUSCULAR HGB CONC 31.7 g/dL (33.0-36.5); MEAN PLATELET VOLUME 7.9 FL (7.4-10.4); MONOCYTES # (AUTO) 0.7 X10'3 (0-0.9); MONOCYTES % (AUTO) 8.3 % (2-12); NEUTROPHILS # (AUTO) 6.2 X10'3 (1.8-7.7); NEUTROPHILS % (AUTO) 76.4 % (42-75); PLATELET COUNT 194 X10'3 (140-440); RED BLOOD COUNT 5.25 X10'6 (4.70-6.10); RED CELL DISTRIBUTION WIDTH 17.3 % (11.5-14.5); WHITE BLOOD COUNT 8.1 X10'3 (4.5-11.0)
[2024-02-09 06:26] LABS: ALANINE AMINOTRANSFERASE 27 U/L (12-78); ALBUMIN 2.7 G/DL (3.4-5.0); ALBUMIN/GLOBULIN RATIO 0.9 (1.1-1.5); ALKALINE PHOSPHATASE 57 IU/L (46-116); ANION GAP 5 (8-16); ASPARTATE AMINO TRANSFERASE 17 U/L (10-37); BLOOD UREA NITROGEN 24 MG/DL (7-18); BUN/CREATININE RATIO 18.8 (10.0-20.0); CALCIUM 9.2 MG/DL (8.5-10.1); CHLORIDE 105 MMOL/L (99-107); CREATININE 1.28 MG/DL (0.60-1.10); GLUCOSE 133 MG/DL (70-104); MAGNESIUM 1.9 MG/DL (1.5-2.4); POTASSIUM 3.9 MMOL/L (3.5-5.1); SODIUM 139 MMOL/L (135-145); TOTAL CARBON DIOXIDE 28.7 MMOL/L (24-32); TOTAL PROTEIN 5.7 G/DL (6.4-8.2); eCRCL 52 ML/MIN; eGFR 55 ML/MIN
[2024-02-09] MEDS: metoprolol succinate 25mg (24-HOUR) SR. Tablet PO SCH (08:13)
[2024-02-09] MEDS: EMPAGLIFLOZIN 10 MG TABLET PO SCH (08:14)
[2024-02-09] MEDS: magnesium hydroxide 30ml (MOM) UD suspension PO PRN (09:19)
[2024-02-09] MEDS: ciprofloxacin lact 400MG/200ML 200 ML IV SCH (21:12)
[2024-02-10] MEDS: mag hydrox/Alum hydrox/simeth 30ml oral suspension PO PRN (03:30)
[2024-02-10 06:27] VITALS: BP 129/59; PULSE 59; RESP 20; TEMP 98.3; O2SAT 96
[2024-02-10 06:48] LABS: BASOPHILS # (AUTO) 0.1 X10'3 (0-0.2); EOSINOPHILS # (AUTO) 0.3 X10'3 (0-0.9); EOSINOPHILS % (AUTO) 3.8 % (0-6); HEMATOCRIT 43.7 % (42.0-52.0); LYMPHOCYTES % (AUTO) 13.7 % (21-51); MEAN CORPUSCULAR HEMOGLOBIN 26.2 PG (27.0-31.0); MEAN CORPUSCULAR HGB CONC 31.9 g/dL (33.0-36.5); MEAN CORPUSCULAR VOLUME 82.2 FL (78-98); MEAN PLATELET VOLUME 8.3 FL (7.4-10.4); MONOCYTES # (AUTO) 0.7 X10'3 (0-0.9); MONOCYTES % (AUTO) 10.4 % (2-12); NEUTROPHILS # (AUTO) 5.1 X10'3 (1.8-7.7); NEUTROPHILS % (AUTO) 71.1 % (42-75); PLATELET COUNT 201 X10'3 (140-440); RED BLOOD COUNT 5.32 X10'6 (4.70-6.10); RED CELL DISTRIBUTION WIDTH 16.9 % (11.5-14.5); WHITE BLOOD COUNT 7.1 X10'3 (4.5-11.0)
[2024-02-10 06:57] LABS: ALANINE AMINOTRANSFERASE 25 U/L (12-78); ALBUMIN 2.8 G/DL (3.4-5.0); ALBUMIN/GLOBULIN RATIO 0.9 (1.1-1.5); ALKALINE PHOSPHATASE 60 IU/L (46-116); ANION GAP 6 (8-16); ASPARTATE AMINO TRANSFERASE 12 U/L (10-37); BILIRUBIN,TOTAL 0.8 MG/DL (0.1-1.0); BLOOD UREA NITROGEN 24 MG/DL (7-18); BUN/CREATININE RATIO 17.9 (10.0-20.0); CALCIUM 9.6 MG/DL (8.5-10.1); CHLORIDE 105 MMOL/L (99-107); CREATININE 1.34 MG/DL (0.60-1.10); GLUCOSE 124 MG/DL (70-104); MAGNESIUM 2.2 MG/DL (1.5-2.4); POTASSIUM 3.9 MMOL/L (3.5-5.1); SODIUM 142 MMOL/L (135-145); TOTAL CARBON DIOXIDE 31.4 MMOL/L (24-32); TOTAL PROTEIN 5.9 G/DL (6.4-8.2); eCRCL 50 ML/MIN; eGFR 52 ML/MIN
[2024-02-10 08:45] VITALS: RESP 16
[2024-02-10 10:00] VITALS: BP 159/53; PULSE 57; RESP 18; TEMP 97.6; O2SAT 96
[2024-02-10 18:00] VITALS: BP_SYST 159; BP_SYST 165; BP_DIAS 62; BP_DIAS 88; PULSE 61; RESP 16; TEMP 97.7; O2SAT 93
[2024-02-10 19:36] VITALS: PULSE 72; RESP 16; O2SAT 96
[2024-02-10 22:00] VITALS: BP 136/88; PULSE 57; RESP 16; TEMP 96; O2SAT 92
[2024-02-11 05:39] LABS: BASOPHILS # (AUTO) 0.1 X10'3 (0-0.2); EOSINOPHILS # (AUTO) 0.3 X10'3 (0-0.9); EOSINOPHILS % (AUTO) 4.4 % (0-6); HEMATOCRIT 42.3 % (42.0-52.0); HEMOGLOBIN 13.5 g/dl (14.0-17.9); LYMPHOCYTES # (AUTO) 1.1 X10'3 (1.1-4.8); LYMPHOCYTES % (AUTO) 16.2 % (21-51); MEAN CORPUSCULAR VOLUME 81.3 FL (78-98); MEAN PLATELET VOLUME 8.1 FL (7.4-10.4); MONOCYTES # (AUTO) 0.7 X10'3 (0-0.9); MONOCYTES % (AUTO) 9.4 % (2-12); NEUTROPHILS # (AUTO) 4.9 X10'3 (1.8-7.7); PLATELET COUNT 199 X10'3 (140-440); RED CELL DISTRIBUTION WIDTH 17.3 % (11.5-14.5); WHITE BLOOD COUNT 7.1 X10'3 (4.5-11.0)
[2024-02-11 05:50] LABS: ALANINE AMINOTRANSFERASE 27 U/L (12-78); ALBUMIN 2.7 G/DL (3.4-5.0); ALBUMIN/GLOBULIN RATIO 0.9 (1.1-1.5); ALKALINE PHOSPHATASE 53 IU/L (46-116); ANION GAP 7 (8-16); ASPARTATE AMINO TRANSFERASE 19 U/L (10-37); BILIRUBIN,TOTAL 0.9 MG/DL (0.1-1.0); BLOOD UREA NITROGEN 23 MG/DL (7-18); BUN/CREATININE RATIO 16.2 (10.0-20.0); CALCIUM 9.2 MG/DL (8.5-10.1); CHLORIDE 102 MMOL/L (99-107); CREATININE 1.42 MG/DL (0.60-1.10); GLUCOSE 115 MG/DL (70-104); MAGNESIUM 2.4 MG/DL (1.5-2.4); POTASSIUM 3.6 MMOL/L (3.5-5.1); SODIUM 138 MMOL/L (135-145); TOTAL CARBON DIOXIDE 29.3 MMOL/L (24-32); TOTAL PROTEIN 5.8 G/DL (6.4-8.2); eCRCL 47 ML/MIN; eGFR 49 ML/MIN
[2024-02-11 06:00] VITALS: BP 141/71; PULSE 52; RESP 14; TEMP 96.7; O2SAT 96
[2024-02-11] MEDS: furosemide 20 MG/2 ML vial IV SCH (07:32)
[2024-02-11 07:40] VITALS: BP_SYST 141; PULSE 55
[2024-02-11 08:52] VITALS: RESP 16
[2024-02-11] MEDS ORDERED: CIPR-259 PO (13:29)
[2024-02-11] MEDS ORDERED: LACT1CAP26 PO (13:29)
[2024-02-11] MEDS ORDERED: EMPA10TA PO (13:33)
[2024-02-11] MEDS ORDERED: FURO-150 PO (13:33)
[2024-02-11] MEDS ORDERED: METO-395 PO (13:33)
== END 2024-02-11 16:09 | disposition home health service (06) | DRG 291 ==
LOC: ER 20:14 → ED HOLD 02-07 03:11 → ORTHO 4S 02-07 19:08
PROVIDERS: ADMIT Internal Medicine Critical Care Medicine; ATTEND Family Medicine
DX: I13.0 Hypertensive heart and chronic kidney disease with heart failure and stage 1 through stage 4 chronic kidney disease, or unspecified chronic kidney disease (principal); I50.33 Acute on chronic diastolic (congestive) heart failure; N17.9 Acute kidney failure, unspecified; E44.1 Mild protein-calorie malnutrition; E78.00 Pure hypercholesterolemia, unspecified; K21.9 Gastro-esophageal reflux disease without esophagitis; E11.22 Type 2 diabetes mellitus with diabetic chronic kidney disease; N18.31 Chronic kidney disease, stage 3a; R33.8 Other retention of urine; N40.1 Benign prostatic hyperplasia with lower urinary tract symptoms; Z68.37 Body mass index [BMI] 37.0-37.9, adult; Z79.82 Long term (current) use of aspirin; Z79.899 Other long term (current) drug therapy; Z79.84 Long term (current) use of oral hypoglycemic drugs
CPT/HCPCS: 36415; 71045; 76700; 80053; 80061; 81001; 82140; 82948; 83735; 83880; 84132; 84153; 84154; 84484; 85025; 85610; 85730; 87077; 87081; 87088; 87186; 93005; 93308; 94760; 96374; 97161; 97530; 97535; 99291; A4314; A5200; G0378; J0696; J0744; J1644; J1815; J1940; J7040

== ENCOUNTER 2024-02-22 21:51 | Emergency (ER) | payer MEDICARE, MEDICAID ==
[~2024-02-22] VITALS: Ht 172.7 cm; Wt 86.4 kg
[~2024-02-22 21:51] MED LIST changes: +EMPA10TA PO; +FURO-150 PO; +LACT1CAP26 PO; +METO-395 PO; +POTA-206 PO
[2024-02-22 21:52] VITALS: TEMP 97.8
[2024-02-22] MEDS ORDERED: LidoCAINE 2% Topical Jelly 11mL syringe (UROJET) TOP ONE (22:25)
[2024-02-22 22:56] LABS: ANION GAP 10 (8-16); BLOOD UREA NITROGEN 25 MG/DL (7-18); BUN/CREATININE RATIO 16.4 (10.0-20.0); CALCIUM 9.3 MG/DL (8.5-10.1); CHLORIDE 107 MMOL/L (99-107); CREATININE 1.52 MG/DL (0.60-1.10); GLUCOSE 133 MG/DL (70-104); POTASSIUM 3.6 MMOL/L (3.5-5.1); SODIUM 145 MMOL/L (135-145); TOTAL CARBON DIOXIDE 28.2 MMOL/L (24-32); eCRCL 43 ML/MIN; eGFR 45 ML/MIN
[2024-02-22 23:02] LABS: ALANINE AMINOTRANSFERASE 27 U/L (12-78); ALBUMIN 2.8 G/DL (3.4-5.0); ALBUMIN/GLOBULIN RATIO 0.8 (1.1-1.5); ALKALINE PHOSPHATASE 65 IU/L (46-116); ASPARTATE AMINO TRANSFERASE 18 U/L (10-37); BILIRUBIN,TOTAL 0.9 MG/DL (0.1-1.0); TOTAL PROTEIN 6.2 G/DL (6.4-8.2)
--- NOTE | 2024-02-22 23:10 | NUR ---
PT REFUSING NEW CATHETER PLACEMENT AT THIS TIME. ATTEMPTED TO EDUCATE PT THAT HIS PRIOR CATHETER WAS PLACED FOR RETENTION AND HE NEEDED TO FOLLOW UP WITH UROLOGY AT PRIOR VISIT. PT STATES HE IS UNSURE IF HE NEEDS IT AND JUST DOESN'T KNOW WHAT TO DO. PT STATED IT IS DIFFICULT TO CARRY AROUND AND IS WORRIED HE WILL HAVE IT FOREVER. PT STATES THAT HE IS HAVING DIFFICULTY GETTING A UROLOGY APPOINTMENT BUT IT IS UNCLEAR WHETHER PT FULLY UNDERSTANDS HIS MEDICAL HISTORY.
[2024-02-23] MEDS ORDERED: CEFP100T7 PO (00:17)
[2024-02-23] MEDS ORDERED: ondansetron 4mg rapidly disintigrating tab PO ONE (00:50)
[2024-02-23 00:53] LABS: BILIRUBIN,URINE NEGATIVE (Neg); CLARITY,URINE CLEAR (Clear); COLOR,URINE STRAW (Yellow); GLUCOSE, URINE >=1000 mg/dl (Neg); KETONES,URINE NEGATIVE (Neg); LEUKOCYTE ESTERASE ,URINE NEGATIVE (Neg); NITRITES, URINE NEGATIVE (Neg); OCCULT BLOOD,URINE SMALL (Neg); PH,URINE 7.5 (4.8-8.0); PROTEIN,URINE 100 mg/dl (Neg); UROBILINOGEN,URINE 0.2 E.U/dL (0.2-1.0)
[2024-02-23 01:06] LABS: UA COLLECTION TYPE FOLEY CATH
[2024-02-23 01:14] LABS: BACTERIA,URINE FEW /HPF (Neg); SQUAMOUS EPITHELIAL CELL,UR FEW /LPF (FEW); WBC,URINE 0-4 /HPF (0-4)
[2024-02-23 01:25] VITALS: BP 191/73; PULSE 67; RESP 15; O2SAT 96
[2024-02-23 01:37] LABS: URINE AMPHETAMINE SCREEN NEGATIVE (Neg); URINE BARBITUATE SCREEN NEGATIVE (Neg); URINE BENZODIAZEPINES SCREEN NEGATIVE (Neg); URINE CANNABINOID SCREEN NEGATIVE (Neg); URINE COCAINE SCREEN NEGATIVE (Neg); URINE METHADONE SCREEN NEGATIVE (Neg); URINE OPIATE SCREEN NEGATIVE (Neg); URINE PHENCYCLIDINE SCREEN NEGATIVE (Neg)
== END 2024-02-23 01:29 | disposition home or self-care (01) ==
LOC: ER 21:52
DX: N39.0 Urinary tract infection, site not specified (principal); T83.018A Breakdown (mechanical) of other urinary catheter, initial encounter; E78.00 Pure hypercholesterolemia, unspecified; I12.9 Hypertensive chronic kidney disease with stage 1 through stage 4 chronic kidney disease, or unspecified chronic kidney disease; N18.9 Chronic kidney disease, unspecified; Z79.82 Long term (current) use of aspirin; Z79.84 Long term (current) use of oral hypoglycemic drugs; Z79.899 Other long term (current) drug therapy; Z60.2 Problems related to living alone
CPT/HCPCS: 36415; 51702; 80053; 80305; 81001; 99284; A4314

== ENCOUNTER 2024-02-25 16:26 | Emergency (ER) | payer MEDICARE, MEDICAID ==
[~2024-02-25] VITALS: Ht 172.7 cm; Wt 105.0 kg
[~2024-02-25 16:26] MED LIST changes: +CEFP100T7 PO
[2024-02-25 17:16] LABS: BILIRUBIN,URINE NEGATIVE (Neg); CLARITY,URINE CLOUDY (Clear); COLOR,URINE YELLOW (Yellow); GLUCOSE, URINE 250 mg/dl (Neg); KETONES,URINE NEGATIVE (Neg); LEUKOCYTE ESTERASE ,URINE NEGATIVE (Neg); NITRITES, URINE NEGATIVE (Neg); OCCULT BLOOD,URINE MODERATE (Neg); PROTEIN,URINE >=300 mg/dl (Neg); UROBILINOGEN,URINE 0.2 E.U/dL (0.2-1.0)
[2024-02-25 17:26] LABS: UA COLLECTION TYPE VOIDED
[2024-02-25 17:29] LABS: BACTERIA,URINE FEW /HPF (Neg); FINE GRANULAR CAST 0-3 /LPF (NEGATIVE); MUCUS STRANDS FEW /LPF (Neg); RBC,URINE 20-50 /HPF (0-2); SQUAMOUS EPITHELIAL CELL,UR FEW /LPF (FEW)
[2024-02-25 20:04] VITALS: BP 140/114; PULSE 96; RESP 14; TEMP 98; O2SAT 97
== END 2024-02-25 20:08 | disposition home or self-care (01) ==
LOC: ER 16:27
DX: N36.8 Other specified disorders of urethra (principal); T85.9XXA Unspecified complication of internal prosthetic device, implant and graft, initial encounter; E78.00 Pure hypercholesterolemia, unspecified; I12.9 Hypertensive chronic kidney disease with stage 1 through stage 4 chronic kidney disease, or unspecified chronic kidney disease; N18.9 Chronic kidney disease, unspecified; Z79.82 Long term (current) use of aspirin; Z79.2 Long term (current) use of antibiotics; Z79.899 Other long term (current) drug therapy; Z79.84 Long term (current) use of oral hypoglycemic drugs; Z60.2 Problems related to living alone
CPT/HCPCS: 81001; 87088; 99284

== ENCOUNTER 2024-03-01 08:12 | Emergency (ER) | payer MEDICARE, MEDICAID ==
[~2024-03-01] VITALS: Ht 175.3 cm; Wt 102.3 kg
[2024-03-01 10:38] LABS: BASOPHILS # (AUTO) 0.1 X10'3 (0-0.2); BASOPHILS % (AUTO) 0.9 % (0-1); EOSINOPHILS # (AUTO) 0.3 X10'3 (0-0.9); EOSINOPHILS % (AUTO) 3.3 % (0-6); HEMATOCRIT 44.5 % (42.0-52.0); MEAN CORPUSCULAR HEMOGLOBIN 26.1 PG (27.0-31.0); MEAN CORPUSCULAR HGB CONC 31.5 g/dL (33.0-36.5); MEAN CORPUSCULAR VOLUME 82.8 FL (78-98); MEAN PLATELET VOLUME 7.8 FL (7.4-10.4); MONOCYTES # (AUTO) 0.7 X10'3 (0-0.9); MONOCYTES % (AUTO) 7.3 % (2-12); NEUTROPHILS # (AUTO) 7.2 X10'3 (1.8-7.7); NEUTROPHILS % (AUTO) 77.5 % (42-75); PLATELET COUNT 195 X10'3 (140-440); RED BLOOD COUNT 5.37 X10'6 (4.70-6.10); RED CELL DISTRIBUTION WIDTH 19.3 % (11.5-14.5); WHITE BLOOD COUNT 9.2 X10'3 (4.5-11.0)
[2024-03-01 10:52] LABS: ALANINE AMINOTRANSFERASE 21 U/L (12-78); ALBUMIN 3.1 G/DL (3.4-5.0); ALBUMIN/GLOBULIN RATIO 0.9 (1.1-1.5); ALKALINE PHOSPHATASE 66 IU/L (46-116); ANION GAP 8 (8-16); ASPARTATE AMINO TRANSFERASE 20 U/L (10-37); BILIRUBIN,TOTAL 1.1 MG/DL (0.1-1.0); BLOOD UREA NITROGEN 18 MG/DL (7-18); BUN/CREATININE RATIO 14.9 (10.0-20.0); CALCIUM 9.4 MG/DL (8.5-10.1); CHLORIDE 106 MMOL/L (99-107); CREATININE 1.21 MG/DL (0.60-1.10); GLUCOSE 139 MG/DL (70-104); POTASSIUM 4.1 MMOL/L (3.5-5.1); SODIUM 139 MMOL/L (135-145); TOTAL CARBON DIOXIDE 24.7 MMOL/L (24-32); TOTAL PROTEIN 6.4 G/DL (6.4-8.2); eCRCL 55 ML/MIN; eGFR 59 ML/MIN
[2024-03-01 10:59] LABS: PRO BRAIN NATRIURETIC PEPTIDE 4220 PG/ML (0-125)
[2024-03-01] MEDS: furosemide 10 MG/1 ML 10ml inj IV ONE (11:49)
[2024-03-01 11:54] VITALS: BP 169/63; PULSE 67; RESP 18; O2SAT 97
[2024-03-01 12:24] VITALS: TEMP 97.6
[2024-03-01 12:32] LABS: BILIRUBIN,URINE NEGATIVE (Neg); CLARITY,URINE CLEAR (Clear); COLOR,URINE YELLOW (Yellow); GLUCOSE, URINE NEGATIVE (Neg); KETONES,URINE NEGATIVE (Neg); LEUKOCYTE ESTERASE ,URINE NEGATIVE (Neg); NITRITES, URINE NEGATIVE (Neg); OCCULT BLOOD,URINE TRACE-INTACT (Neg); PROTEIN,URINE 100 mg/dl (Neg); UROBILINOGEN,URINE 0.2 E.U/dL (0.2-1.0)
[2024-03-01 12:37] LABS: UA COLLECTION TYPE VOIDED
[2024-03-01 12:38] LABS: BACTERIA,URINE NONE SEEN /HPF (Neg); MUCUS STRANDS NONE SEEN /LPF (Neg); RBC,URINE 0-2 /HPF (0-2); SQUAMOUS EPITHELIAL CELL,UR FEW /LPF (FEW); WBC,URINE 0-4 /HPF (0-4)
== END 2024-03-01 12:25 | disposition home or self-care (01) ==
LOC: ER 08:12
DX: I13.0 Hypertensive heart and chronic kidney disease with heart failure and stage 1 through stage 4 chronic kidney disease, or unspecified chronic kidney disease (principal); I50.9 Heart failure, unspecified; N18.9 Chronic kidney disease, unspecified; E78.00 Pure hypercholesterolemia, unspecified; Z79.82 Long term (current) use of aspirin; Z79.899 Other long term (current) drug therapy; Z87.891 Personal history of nicotine dependence
CPT/HCPCS: 36415; 71045; 80053; 81001; 83880; 84484; 85025; 93005; 96374; 99285; J1940

== ENCOUNTER 2024-03-03 01:17 | Inpatient (IN) | payer MEDICARE, MEDICAID ==
[~2024-03-03] VITALS: Ht 175.3 cm; Wt 102.3 kg
[2024-03-03 01:55] LABS: BASOPHILS # (AUTO) 0.1 X10'3 (0-0.2); BASOPHILS % (AUTO) 0.8 % (0-1); EOSINOPHILS # (AUTO) 0.2 X10'3 (0-0.9); EOSINOPHILS % (AUTO) 2.6 % (0-6); HEMATOCRIT 43.7 % (42.0-52.0); LYMPHOCYTES % (AUTO) 10.3 % (21-51); MEAN CORPUSCULAR HEMOGLOBIN 26.2 PG (27.0-31.0); MEAN CORPUSCULAR HGB CONC 32.1 g/dL (33.0-36.5); MEAN CORPUSCULAR VOLUME 81.8 FL (78-98); MEAN PLATELET VOLUME 7.4 FL (7.4-10.4); MONOCYTES # (AUTO) 0.8 X10'3 (0-0.9); MONOCYTES % (AUTO) 8.3 % (2-12); NEUTROPHILS # (AUTO) 7.5 X10'3 (1.8-7.7); PLATELET COUNT 208 X10'3 (140-440); RED BLOOD COUNT 5.35 X10'6 (4.70-6.10); RED CELL DISTRIBUTION WIDTH 18.6 % (11.5-14.5); WHITE BLOOD COUNT 9.6 X10'3 (4.5-11.0)
[2024-03-03] MEDS: metoprolol tartrate 50mg tablet PO ONE (02:16)
[2024-03-03] MEDS: ipratropium/albuterol 3ml nebule NEB ONE (02:29)
[2024-03-03 02:31] LABS: ALBUMIN 3.1 G/DL (3.4-5.0); ANION GAP 7 (8-16); BLOOD UREA NITROGEN 17 MG/DL (7-18); BUN/CREATININE RATIO 13.7 (10.0-20.0); CALCIUM 9.8 MG/DL (8.5-10.1); CHLORIDE 106 MMOL/L (99-107); CREATININE 1.24 MG/DL (0.60-1.10); GLUCOSE 138 MG/DL (70-104); MAGNESIUM 2.2 MG/DL (1.5-2.4); PRO BRAIN NATRIURETIC PEPTIDE 6408 PG/ML (0-125); SODIUM 139 MMOL/L (135-145); TOTAL CARBON DIOXIDE 25.6 MMOL/L (24-32); eCRCL 54 ML/MIN; eGFR 57 ML/MIN
[2024-03-03 02:32] VITALS: PULSE 66; RESP 18; O2SAT 94
[2024-03-03 02:39] VITALS: PULSE 68; RESP 18; O2SAT 99
[2024-03-03] MEDS: furosemide 20MG tablet PO ONE (02:54)
[2024-03-03 04:05] LABS: ANISOCYTOSIS 2+; BURR CELLS 1+; ELLIPTOCYTES FEW; PLATELET ESTIMATE NORMAL
[2024-03-03] MEDS ORDERED: magnesium sulf-water 2g/50mL 50 ML IV PRN (05:35)
[2024-03-03] MEDS ORDERED: potassium Cl 40MEQ/1/2NS 520ml 520 ML IV PRN (05:35)
[2024-03-03] MEDS: PERFLUTREN PROTEIN-A MICROSPHR (Optison) 0.22 MG/ML 3ML VIAL IV ONE (05:35)
[2024-03-03] MEDS ORDERED: magnesium sulf-water 4G/100mL 100 ML IV PRN (05:35)
[2024-03-03] MEDS ORDERED: magnesium hydroxide 30ml (MOM) UD suspension PO PRN (05:35)
[2024-03-03] MEDS ORDERED: ondansetron/PF 4mg/2ml inj IV PRN (05:35)
[2024-03-03] MEDS ORDERED: magnesium Cl slow-release 64mg tablet PO PRN (05:35)
[2024-03-03] MEDS ORDERED: potassium Cl 20 mEq SR tablet PO PRN (05:35)
[2024-03-03] MEDS ORDERED: mag hydrox/Alum hydrox/simeth 30ml oral suspension PO PRN (05:35)
[2024-03-03] MEDS ORDERED: glucagon, human recombinant 1mg kit SUBCUT PRN (06:35)
[2024-03-03] MEDS ORDERED: DEXTROSE 15 GM of carb/4 tabs (each vial/BOTTLE has 4 tablets) PO PRN ×2 (06:35)
[2024-03-03] MEDS ORDERED: dextrose 50%-water 50ml dispensing syringe IV PRN ×2 (06:35)
[2024-03-03] MEDS: docusate sod 100mg capsule PO SCH (07:20)
[2024-03-03] MEDS: furosemide 10 MG/1 ML 10ml inj IV SCH (07:20)
[2024-03-03 07:59] LABS: POTASSIUM 3.8 MMOL/L (3.5-5.1)
[2024-03-03] MEDS: K and/or MAG REPLACEMENT MC SCH (08:26)
[2024-03-03] MEDS: INSULIN LISPRO 100 UNIT/ML INSULN.PEN MULTI-DOSE SQ SCH (08:49)
[2024-03-03 09:00] LABS: BILIRUBIN,URINE NEGATIVE (Neg); CLARITY,URINE CLEAR (Clear); COLOR,URINE YELLOW (Yellow); GLUCOSE, URINE NEGATIVE (Neg); KETONES,URINE NEGATIVE (Neg); LEUKOCYTE ESTERASE ,URINE NEGATIVE (Neg); NITRITES, URINE NEGATIVE (Neg); OCCULT BLOOD,URINE SMALL (Neg); PH,URINE 6.5 (4.8-8.0); PROTEIN,URINE 100 mg/dl (Neg); UROBILINOGEN,URINE 0.2 E.U/dL (0.2-1.0)
[2024-03-03 09:06] LABS: UA COLLECTION TYPE CLN CATCH MIDSTREAM
[2024-03-03 09:12] LABS: BACTERIA,URINE NONE SEEN /HPF (Neg); SQUAMOUS EPITHELIAL CELL,UR FEW /LPF (FEW); WBC,URINE 0-4 /HPF (0-4)
[2024-03-03 18:45] VITALS: BP 195/92; PULSE 84; RESP 25; TEMP 97.3; O2SAT 98
[2024-03-03 19:45] VITALS: BP 195/92; RESP 25; TEMP 97.3; O2SAT 98
[2024-03-03] MEDS: metoprolol succinate 25mg (24-HOUR) SR. Tablet PO SCH (20:46)
[2024-03-03 22:00] VITALS: BP 155/70; PULSE 64; RESP 16; TEMP 98.1; O2SAT 97
[2024-03-03] MEDS ORDERED: FLUT1BLS16 INH (22:03)
[2024-03-04] VITALS (11 sets, daily range): BP systolic 146–182; BP diastolic 69–84; PULSE 61–86; RESP 16–23; TEMP 97.3–98.2; O2SAT 93–97
[2024-03-04] MEDS: hydrALAZINE 20mg/ml inj. IV SCH (02:54)
[2024-03-04 06:18] LABS: BASOPHILS # (AUTO) 0.1 X10'3 (0-0.2); BASOPHILS % (AUTO) 0.7 % (0-1); EOSINOPHILS # (AUTO) 0.3 X10'3 (0-0.9); EOSINOPHILS % (AUTO) 2.6 % (0-6); HEMATOCRIT 44.8 % (42.0-52.0); HEMOGLOBIN 14.2 g/dl (14.0-17.9); LYMPHOCYTES # (AUTO) 0.9 X10'3 (1.1-4.8); MEAN CORPUSCULAR HEMOGLOBIN 26.2 PG (27.0-31.0); MEAN CORPUSCULAR HGB CONC 31.6 g/dL (33.0-36.5); MEAN PLATELET VOLUME 7.8 FL (7.4-10.4); MONOCYTES # (AUTO) 0.6 X10'3 (0-0.9); MONOCYTES % (AUTO) 6.5 % (2-12); NEUTROPHILS % (AUTO) 81.2 % (42-75); PLATELET COUNT 191 X10'3 (140-440); WHITE BLOOD COUNT 9.9 X10'3 (4.5-11.0)
[2024-03-04 06:28] LABS: INR 1.1 INR; PROTHROMBIN TIME 11.1 SECONDS (9.0-12.0)
[2024-03-04 06:33] LABS: ALANINE AMINOTRANSFERASE 26 U/L (12-78); ALBUMIN 2.7 G/DL (3.4-5.0); ALBUMIN/GLOBULIN RATIO 0.9 (1.1-1.5); ALKALINE PHOSPHATASE 60 IU/L (46-116); ANION GAP 9 (8-16); ASPARTATE AMINO TRANSFERASE 19 U/L (10-37); BILIRUBIN,TOTAL 1.5 MG/DL (0.1-1.0); BLOOD UREA NITROGEN 21 MG/DL (7-18); BUN/CREATININE RATIO 19.6 (10.0-20.0); CALCIUM 9.2 MG/DL (8.5-10.1); CHLORIDE 108 MMOL/L (99-107); CHOL/HDL RATIO 1.9 (0.00-4.99); CHOLESTEROL 122 MG/DL (0-200); CREATININE 1.07 MG/DL (0.60-1.10); GLUCOSE 162 MG/DL (70-104); HDL CHOLESTEROL 64 MG/DL (35-60); LDL CHOLESTEROL 45 MG/DL (50-100); POTASSIUM 3.7 MMOL/L (3.5-5.1); SODIUM 145 MMOL/L (135-145); TOTAL CARBON DIOXIDE 27.6 MMOL/L (24-32); TOTAL PROTEIN 5.8 G/DL (6.4-8.2); TRIGLYCERIDES 48 MG/DL (20-135); eCRCL 62 ML/MIN; eGFR 68 ML/MIN
[2024-03-04] MEDS: nitroGLYCERIN 0.4mg/hour patch TD SCH (08:41)
[2024-03-04] MEDS: atorvastatin 20mg tablet PO SCH (12:58)
[2024-03-04] MEDS: aspirin 81mg, enteric-coated 1 TAB TABLET.DR PO SCH (12:58)
[2024-03-04] MEDS: acetaminophen 325mg tablet PO PRN (16:05)
[2024-03-04] MEDS: albuterol 2.5 MG/3 ML nebule NEB PRN (19:51)
[2024-03-04] MEDS: furosemide 40mg/4ml inj IV SCH (20:56)
[2024-03-04] MEDS: nystatin 15 GM powder TP SCH (21:55)
[2024-03-05 02:00] VITALS: BP 151/76; PULSE 68; RESP 23; TEMP 97.9; O2SAT 93
[2024-03-05 06:01] LABS: BASOPHILS # (AUTO) 0.1 X10'3 (0-0.2); BASOPHILS % (AUTO) 0.6 % (0-1); EOSINOPHILS # (AUTO) 0.2 X10'3 (0-0.9); EOSINOPHILS % (AUTO) 1.8 % (0-6); HEMATOCRIT 43.7 % (42.0-52.0); HEMOGLOBIN 13.9 g/dl (14.0-17.9); LYMPHOCYTES # (AUTO) 0.8 X10'3 (1.1-4.8); LYMPHOCYTES % (AUTO) 7.9 % (21-51); MEAN CORPUSCULAR HEMOGLOBIN 26.3 PG (27.0-31.0); MEAN CORPUSCULAR HGB CONC 31.8 g/dL (33.0-36.5); MEAN CORPUSCULAR VOLUME 82.8 FL (78-98); MONOCYTES # (AUTO) 0.7 X10'3 (0-0.9); MONOCYTES % (AUTO) 7.3 % (2-12); NEUTROPHILS # (AUTO) 8.2 X10'3 (1.8-7.7); NEUTROPHILS % (AUTO) 82.4 % (42-75); PLATELET COUNT 195 X10'3 (140-440); RED BLOOD COUNT 5.29 X10'6 (4.70-6.10); RED CELL DISTRIBUTION WIDTH 18.9 % (11.5-14.5); WHITE BLOOD COUNT 9.9 X10'3 (4.5-11.0)
[2024-03-05 06:05] LABS: INR 1.1 INR; PROTHROMBIN TIME 11.2 SECONDS (9.0-12.0)
[2024-03-05 06:17] LABS: ALANINE AMINOTRANSFERASE 23 U/L (12-78); ALBUMIN 2.9 G/DL (3.4-5.0); ALBUMIN/GLOBULIN RATIO 0.9 (1.1-1.5); ALKALINE PHOSPHATASE 63 IU/L (46-116); ANION GAP 7 (8-16); ASPARTATE AMINO TRANSFERASE 19 U/L (10-37); BILIRUBIN,TOTAL 1.7 MG/DL (0.1-1.0); BLOOD UREA NITROGEN 22 MG/DL (7-18); BUN/CREATININE RATIO 21.2 (10.0-20.0); CALCIUM 9.7 MG/DL (8.5-10.1); CHLORIDE 105 MMOL/L (99-107); CREATININE 1.04 MG/DL (0.60-1.10); GLUCOSE 170 MG/DL (70-104); POTASSIUM 3.3 MMOL/L (3.5-5.1); SODIUM 139 MMOL/L (135-145); TOTAL CARBON DIOXIDE 27.4 MMOL/L (24-32); TOTAL PROTEIN 6.3 G/DL (6.4-8.2); eCRCL 64 ML/MIN; eGFR 70 ML/MIN
[2024-03-05 07:13] VITALS: BP 190/68; PULSE 61; RESP 21; TEMP 98.2; O2SAT 94
[2024-03-05] MEDS: EMPAGLIFLOZIN 10 MG TABLET PO SCH (07:24)
[2024-03-05] MEDS: potassium chloride 10mEq ER tablet PO SCH (07:24)
[2024-03-05] MEDS: FINERENONE PO SCH (07:24)
[2024-03-05] MEDS: pantoprazole 40mg Tablet.DR PO SCH (07:24)
[2024-03-05] MEDS: potassium Cl 20 mEq SR tablet PO PRN (07:24)
[2024-03-05] MEDS: tamsulosin 0.4mg capsule PO SCH (07:24)
[2024-03-05] MEDS: losartan 50mg tablet PO SCH (07:25)
[2024-03-05 07:30] VITALS: RESP 21; O2SAT 94
[2024-03-05] MEDS: metoprolol succinate 25mg (24-HOUR) SR. Tablet PO SCH (07:32)
[2024-03-05] MEDS ORDERED: FURO-150 PO (09:40)
[2024-03-05] MEDS ORDERED: METF-1203 PO (09:40)
[2024-03-05] MEDS ORDERED: FLO0.4C PO (09:40)
[2024-03-05 09:54] VITALS: BP 115/61; PULSE 66
[2024-03-05] MEDS: [UNRECOGNIZED DRUG - OTHER] PO SCH (11:40)
[2024-03-05 11:50] VITALS: BP 129/50; PULSE 90; RESP 23; TEMP 97.4; O2SAT 93
[2024-03-05] MEDS ORDERED: FURO40TA4 PO (17:53)
== END 2024-03-05 15:00 | disposition home health service (06) | DRG 280 ==
LOC: ER 01:17 → ED HOLD 05:38 → UNDOADMIN 05:38 → ED HOLD 05:50 → PCU 3S 19:29
PROVIDERS: ADMIT Internal Medicine Critical Care Medicine; ATTEND Internal Medicine
DX: I13.0 Hypertensive heart and chronic kidney disease with heart failure and stage 1 through stage 4 chronic kidney disease, or unspecified chronic kidney disease (principal); I50.33 Acute on chronic diastolic (congestive) heart failure; I21.A1 Myocardial infarction type 2; I35.1 Nonrheumatic aortic (valve) insufficiency; E78.00 Pure hypercholesterolemia, unspecified; R09.02 Hypoxemia; E66.9 Obesity, unspecified; N18.9 Chronic kidney disease, unspecified; E11.22 Type 2 diabetes mellitus with diabetic chronic kidney disease; N40.1 Benign prostatic hyperplasia with lower urinary tract symptoms; Z79.82 Long term (current) use of aspirin; Z79.899 Other long term (current) drug therapy; Z79.84 Long term (current) use of oral hypoglycemic drugs; Z68.33 Body mass index [BMI] 33.0-33.9, adult; R33.8 Other retention of urine
CPT/HCPCS: 36415; 71045; 80048; 80053; 80061; 81001; 82948; 83735; 83880; 84132; 84484; 85008; 85025; 85610; 87081; 93005; 94640; 94760; 96374; 97161; 97530; 99285; 99291; A4649; A6250; A6446; A6449; G0378; J0360; J1815; J1940

== ENCOUNTER 2024-03-09 12:28 | Observation (INO) | payer MEDICARE, MEDICAID ==
[~2024-03-09] VITALS: Ht 175.3 cm; Wt 107.4 kg
[~2024-03-09 12:28] MED LIST changes: -CEFP100T7 PO; +FLUT1BLS16 INH; -FURO-150 PO; +FURO40TA4 PO; -LACT1CAP26 PO; +METF-1203 PO; -METF-438 PO
[2024-03-09] MEDS: ondansetron/PF 4mg/2ml inj IV ONE (13:39)
[2024-03-09] MEDS: morphine 4 MG/ML inj SYRINge IV ONE (13:39)
[2024-03-09 14:02] LABS: BASOPHILS # (AUTO) 0.1 X10'3 (0-0.2); BASOPHILS % (AUTO) 1.4 % (0-1); EOSINOPHILS # (AUTO) 0.2 X10'3 (0-0.9); HEMATOCRIT 42.7 % (42.0-52.0); HEMOGLOBIN 13.6 g/dl (14.0-17.9); LYMPHOCYTES # (AUTO) 0.8 X10'3 (1.1-4.8); LYMPHOCYTES % (AUTO) 8.5 % (21-51); MEAN CORPUSCULAR HEMOGLOBIN 26.4 PG (27.0-31.0); MEAN CORPUSCULAR HGB CONC 31.8 g/dL (33.0-36.5); MEAN PLATELET VOLUME 7.5 FL (7.4-10.4); MONOCYTES # (AUTO) 0.6 X10'3 (0-0.9); MONOCYTES % (AUTO) 6.7 % (2-12); NEUTROPHILS # (AUTO) 7.3 X10'3 (1.8-7.7); NEUTROPHILS % (AUTO) 81.4 % (42-75); PLATELET COUNT 211 X10'3 (140-440); RED BLOOD COUNT 5.15 X10'6 (4.70-6.10); RED CELL DISTRIBUTION WIDTH 18.1 % (11.5-14.5); WHITE BLOOD COUNT 8.9 X10'3 (4.5-11.0)
[2024-03-09 14:04] LABS: ALANINE AMINOTRANSFERASE 19 U/L (12-78); ALBUMIN 2.9 G/DL (3.4-5.0); ALBUMIN/GLOBULIN RATIO 0.9 (1.1-1.5); ALKALINE PHOSPHATASE 71 IU/L (46-116); ANION GAP 6 (8-16); ASPARTATE AMINO TRANSFERASE 24 U/L (10-37); BILIRUBIN,TOTAL 0.6 MG/DL (0.1-1.0); BLOOD UREA NITROGEN 18 MG/DL (7-18); BUN/CREATININE RATIO 16.5 (10.0-20.0); CALCIUM 9.4 MG/DL (8.5-10.1); CHLORIDE 104 MMOL/L (99-107); CREATININE 1.09 MG/DL (0.60-1.10); GLUCOSE 146 MG/DL (70-104); POTASSIUM 4.2 MMOL/L (3.5-5.1); SODIUM 136 MMOL/L (135-145); TOTAL CARBON DIOXIDE 26.5 MMOL/L (24-32); TOTAL PROTEIN 6.2 G/DL (6.4-8.2); eCRCL 61 ML/MIN; eGFR 66 ML/MIN
[2024-03-09] MEDS ORDERED: ondansetron/PF 4mg/2ml inj IV PRN (14:15)
[2024-03-09] MEDS ORDERED: morphine 2 MG/ML inj. syringe IV PRN (14:15)
[2024-03-09] MEDS ORDERED: magnesium Cl slow-release 64mg tablet PO PRN (14:15)
[2024-03-09] MEDS ORDERED: magnesium sulf-water 2g/50mL 50 ML IV PRN (14:15)
[2024-03-09] MEDS ORDERED: potassium Cl 20 mEq SR tablet PO PRN ×2 (14:15)
[2024-03-09] MEDS ORDERED: acetaminophen 325mg tablet PO PRN (14:15)
[2024-03-09] MEDS ORDERED: magnesium sulf-water 4G/100mL 100 ML IV PRN (14:15)
[2024-03-09] MEDS ORDERED: potassium Cl 40MEQ/1/2NS 520ml 520 ML IV PRN (14:15)
[2024-03-09] MEDS: HYDROcodone/acetaminophen 5mg/325mg tablet PO ONE (15:43)
[2024-03-09] MEDS: metoprolol succinate 25mg (24-HOUR) SR. Tablet PO SCH (15:44)
[2024-03-09] MEDS: normal saline 1000ml 1,000 ML IV SCH (15:49)
[2024-03-09 18:05] VITALS: BP 165/89; PULSE 82; RESP 14; TEMP 98.1; O2SAT 93
[2024-03-09] MEDS: losartan 50mg tablet PO SCH (20:00)
[2024-03-09] MEDS: metFORMIN 500mg tablet PO SCH (20:01)
[2024-03-09] MEDS: tamsulosin 0.4mg capsule PO SCH (20:01)
[2024-03-09] MEDS: HYDROcodone/acetaminophen 10/325mg tab PO PRN (20:02)
[2024-03-09] MEDS: heparin, porcine 5000 units/ml vial SQ SCH (20:02)
[2024-03-09] MEDS: morphine 2 MG/ML inj. syringe IV PRN (21:37)
[2024-03-09 22:00] VITALS: BP 167/84; PULSE 75; RESP 18; TEMP 96.8; O2SAT 97
[2024-03-10 05:58] LABS: BASOPHILS # (AUTO) 0.1 X10'3 (0-0.2); BASOPHILS % (AUTO) 0.8 % (0-1); EOSINOPHILS # (AUTO) 0.3 X10'3 (0-0.9); EOSINOPHILS % (AUTO) 3.1 % (0-6); HEMATOCRIT 43.6 % (42.0-52.0); HEMOGLOBIN 13.8 g/dl (14.0-17.9); LYMPHOCYTES # (AUTO) 1.1 X10'3 (1.1-4.8); LYMPHOCYTES % (AUTO) 13.2 % (21-51); MEAN CORPUSCULAR HEMOGLOBIN 26.3 PG (27.0-31.0); MEAN CORPUSCULAR HGB CONC 31.6 g/dL (33.0-36.5); MEAN CORPUSCULAR VOLUME 83.1 FL (78-98); MEAN PLATELET VOLUME 7.7 FL (7.4-10.4); MONOCYTES # (AUTO) 0.6 X10'3 (0-0.9); MONOCYTES % (AUTO) 7.7 % (2-12); NEUTROPHILS # (AUTO) 6.3 X10'3 (1.8-7.7); NEUTROPHILS % (AUTO) 75.2 % (42-75); PLATELET COUNT 193 X10'3 (140-440); RED BLOOD COUNT 5.25 X10'6 (4.70-6.10); RED CELL DISTRIBUTION WIDTH 18.4 % (11.5-14.5); WHITE BLOOD COUNT 8.4 X10'3 (4.5-11.0)
[2024-03-10 06:00] VITALS: BP 146/62; PULSE 65; RESP 24; TEMP 96.8; O2SAT 99
[2024-03-10 06:23] LABS: ALANINE AMINOTRANSFERASE 22 U/L (12-78); ALBUMIN 2.8 G/DL (3.4-5.0); ALBUMIN/GLOBULIN RATIO 0.9 (1.1-1.5); ALKALINE PHOSPHATASE 68 IU/L (46-116); ANION GAP 7 (8-16); ASPARTATE AMINO TRANSFERASE 23 U/L (10-37); BILIRUBIN,TOTAL 0.8 MG/DL (0.1-1.0); BLOOD UREA NITROGEN 19 MG/DL (7-18); CALCIUM 9.4 MG/DL (8.5-10.1); CHLORIDE 102 MMOL/L (99-107); CREATININE 1.19 MG/DL (0.60-1.10); GLUCOSE 158 MG/DL (70-104); POTASSIUM 4.8 MMOL/L (3.5-5.1); SODIUM 135 MMOL/L (135-145); TOTAL CARBON DIOXIDE 26.3 MMOL/L (24-32); eCRCL 56 ML/MIN; eGFR 60 ML/MIN
[2024-03-10 06:35] LABS: HEMOGLOBIN A1C 6.9 % (4.5-6.2)
[2024-03-10] MEDS: aspirin 81mg, enteric-coated 1 TAB TABLET.DR PO SCH (07:28)
[2024-03-10] MEDS: EMPAGLIFLOZIN 10 MG TABLET PO SCH (07:28)
[2024-03-10] MEDS: spironolactone 25 MG tablet PO SCH (07:29)
[2024-03-10] MEDS: pantoprazole 40mg Tablet.DR PO SCH (07:29)
[2024-03-10] MEDS ORDERED: ipratropium/albuterol 3ml nebule NEB PRN (08:00)
[2024-03-10] MEDS ORDERED: albuterol 2.5 MG/3 ML nebule NEB PRN (08:00)
[2024-03-10] MEDS: furosemide 20 MG/2 ML vial IV SCH (09:17)
[2024-03-10 11:00] VITALS: BP 165/66; PULSE 68; RESP 18; TEMP 97.3; O2SAT 94
[2024-03-10] MEDS: HYDROcodone/acetaminophen 5mg/325mg tablet PO PRN (11:03)
[2024-03-10 12:51] VITALS: PULSE 68; RESP 20; O2SAT 93
[2024-03-10] MEDS ORDERED: ACET-1008 PO (16:23)
[2024-03-10] MEDS: acetaminophen 325mg tablet PO PRN (17:15)
[2024-03-10 17:30] VITALS: O2SAT 97
== END 2024-03-10 17:30 | disposition home or self-care (01) ==
LOC: ER 12:28 → ED HOLD 14:20 → ORTHO 4S 18:41
PROVIDERS: ADMIT Internal Medicine; ATTEND Internal Medicine
DX: S82.141A Displaced bicondylar fracture of right tibia, initial encounter for closed fracture (principal); Z20.822 Contact with and (suspected) exposure to COVID-19; S89.91XA Unspecified injury of right lower leg, initial encounter; I13.0 Hypertensive heart and chronic kidney disease with heart failure and stage 1 through stage 4 chronic kidney disease, or unspecified chronic kidney disease; E11.22 Type 2 diabetes mellitus with diabetic chronic kidney disease; N18.9 Chronic kidney disease, unspecified; I50.9 Heart failure, unspecified; N40.0 Benign prostatic hyperplasia without lower urinary tract symptoms; E78.00 Pure hypercholesterolemia, unspecified; Z79.82 Long term (current) use of aspirin; Z79.84 Long term (current) use of oral hypoglycemic drugs; W19.XXXA Unspecified fall, initial encounter; Y93.16 Activity, rowing, canoeing, kayaking, rafting and tubing; Y92.89 Other specified places as the place of occurrence of the external cause; Y99.8 Other external cause status
CPT/HCPCS: 73564; 73721; 80053; 82948; 83036; 87811; 93005; 94760; 96361; 96372; 96374; 96375; 97161; 99284; G0378; 36415; 71045; 85025; 87081; 96376; 97116; 97530; J1644; J1940; J2270; J2405; J7030

== ENCOUNTER 2024-03-16 00:30 | Inpatient (IN) | payer MEDICARE, MEDICAID ==
[~2024-03-16] VITALS: Ht 175.3 cm; Wt 106.7 kg
[~2024-03-16 00:30] MED LIST changes: +ACET-1008 PO
[2024-03-16 01:15] LABS: BASOPHILS # (AUTO) 0.1 X10'3 (0-0.2); BASOPHILS % (AUTO) 1.1 % (0-1); EOSINOPHILS # (AUTO) 0.3 X10'3 (0-0.9); EOSINOPHILS % (AUTO) 2.3 % (0-6); HEMATOCRIT 43.1 % (42.0-52.0); HEMOGLOBIN 13.6 g/dl (14.0-17.9); LYMPHOCYTES # (AUTO) 1.2 X10'3 (1.1-4.8); LYMPHOCYTES % (AUTO) 10.6 % (21-51); MEAN CORPUSCULAR HEMOGLOBIN 26.2 PG (27.0-31.0); MEAN CORPUSCULAR HGB CONC 31.6 g/dL (33.0-36.5); MEAN CORPUSCULAR VOLUME 82.8 FL (78-98); MEAN PLATELET VOLUME 7.1 FL (7.4-10.4); MONOCYTES # (AUTO) 0.9 X10'3 (0-0.9); MONOCYTES % (AUTO) 7.8 % (2-12); NEUTROPHILS # (AUTO) 8.6 X10'3 (1.8-7.7); NEUTROPHILS % (AUTO) 78.2 % (42-75); PLATELET COUNT 209 X10'3 (140-440); RED CELL DISTRIBUTION WIDTH 17.7 % (11.5-14.5)
[2024-03-16 01:36] LABS: ANION GAP 8 (8-16); BILIRUBIN,TOTAL 0.8 MG/DL (0.1-1.0); BLOOD UREA NITROGEN 23 MG/DL (7-18); CALCIUM 9.2 MG/DL (8.5-10.1); CHLORIDE 107 MMOL/L (99-107); CREATININE 1.44 MG/DL (0.60-1.10); GLUCOSE 174 MG/DL (70-104); POTASSIUM 4.3 MMOL/L (3.5-5.1); SODIUM 140 MMOL/L (135-145); TOTAL CARBON DIOXIDE 24.7 MMOL/L (24-32); TOTAL PROTEIN 6.4 G/DL (6.4-8.2); eCRCL 46 ML/MIN; eGFR 48 ML/MIN
[2024-03-16 01:37] LABS: ALANINE AMINOTRANSFERASE 17 U/L (12-78); ALBUMIN/GLOBULIN RATIO 0.9 (1.1-1.5); ALKALINE PHOSPHATASE 81 IU/L (46-116); ASPARTATE AMINO TRANSFERASE 16 U/L (10-37)
[2024-03-16 01:44] LABS: PRO BRAIN NATRIURETIC PEPTIDE 4676 PG/ML (0-125)
[2024-03-16] MEDS: furosemide 10 MG/1 ML 10ml inj IV ONE (02:43)
[2024-03-16] MEDS ORDERED: nitroGLYCERIN 25mg/250mL D5W 250 ML IV SCH (03:20)
[2024-03-16] MEDS: nitroGLYCERIN-Tridil 50MG/D5W 250 ML IV SCH (03:32)
[2024-03-16] MEDS ORDERED: magnesium sulf-water 4G/100mL 100 ML IV PRN (04:20)
[2024-03-16] MEDS ORDERED: mag hydrox/Alum hydrox/simeth 30ml oral suspension PO PRN (04:20)
[2024-03-16] MEDS ORDERED: magnesium hydroxide 30ml (MOM) UD suspension PO PRN (04:20)
[2024-03-16] MEDS ORDERED: magnesium Cl slow-release 64mg tablet PO PRN (04:20)
[2024-03-16] MEDS ORDERED: potassium Cl 20 mEq SR tablet PO PRN ×2 (04:20)
[2024-03-16] MEDS ORDERED: ondansetron/PF 4mg/2ml inj IV PRN (04:20)
[2024-03-16] MEDS ORDERED: potassium Cl 40MEQ/1/2NS 520ml 520 ML IV PRN (04:20)
[2024-03-16] MEDS ORDERED: magnesium sulf-water 2g/50mL 50 ML IV PRN (04:20)
[2024-03-16 04:29] LABS: BILIRUBIN,URINE NEGATIVE (Neg); CLARITY,URINE CLEAR (Clear); COLOR,URINE STRAW (Yellow); GLUCOSE, URINE 500 mg/dl (Neg); KETONES,URINE NEGATIVE (Neg); LEUKOCYTE ESTERASE ,URINE NEGATIVE (Neg); NITRITES, URINE NEGATIVE (Neg); OCCULT BLOOD,URINE TRACE-INTACT (Neg); PROTEIN,URINE 100 mg/dl (Neg); UROBILINOGEN,URINE 0.2 E.U/dL (0.2-1.0)
[2024-03-16] MEDS ORDERED: dextrose 50%-water 50ml dispensing syringe IV PRN ×2 (04:35)
[2024-03-16] MEDS ORDERED: DEXTROSE 15 GM of carb/4 tabs (each vial/BOTTLE has 4 tablets) PO PRN ×2 (04:35)
[2024-03-16] MEDS ORDERED: glucagon, human recombinant 1mg kit SUBCUT PRN (04:35)
[2024-03-16 04:40] LABS: UA COLLECTION TYPE CLN CATCH MIDSTREAM; WBC,URINE 0-4 /HPF (0-4)
[2024-03-16 04:41] LABS: BACTERIA,URINE NONE SEEN /HPF (Neg); SQUAMOUS EPITHELIAL CELL,UR NONE SEEN /LPF (FEW)
[2024-03-16 04:58] LABS: MAGNESIUM 1.9 MG/DL (1.5-2.4)
[2024-03-16 07:46] LABS: D-DIMER 0.74 MG/L FEU (0-0.50)
[2024-03-16] MEDS: INSULIN LISPRO 100 UNIT/ML INSULN.PEN MULTI-DOSE SQ SCH ×3 (07:52→19:56)
[2024-03-16] MEDS: docusate sod 100mg capsule PO SCH (08:00)
[2024-03-16] MEDS ORDERED: furosemide 40mg/4ml inj IV SCH (08:00)
[2024-03-16] MEDS ORDERED: furosemide 20 MG/2 ML vial IV SCH (08:00)
[2024-03-16] MEDS: K and/or MAG REPLACEMENT MC SCH (08:00)
[2024-03-16] MEDS ORDERED: losartan 50mg tablet PO SCH (09:35)
[2024-03-16] MEDS: losartan 50mg tablet PO ONE (09:35)
[2024-03-16 10:16] VITALS: BP 189/83; RESP 22; TEMP 98; O2SAT 94
[2024-03-16] MEDS: furosemide 40mg/4ml inj IV SCH (11:29)
[2024-03-16] MEDS: FLU VACC TS2024-25(6MOS UP)/PF 45 MCG/0.5 ML SYRINGE IMVAC ONE (11:56)
[2024-03-16] MEDS ORDERED: hydrALAZINE 20mg/ml inj. IV PRN (12:15)
[2024-03-16 15:00] VITALS: BP 174/87; RESP 25; TEMP 97.8; O2SAT 91
[2024-03-16] MEDS: amLODIPine 5mg tablet PO SCH (15:18)
[2024-03-16 18:00] VITALS: BP 186/69; PULSE 77; RESP 20; TEMP 98; O2SAT 98
[2024-03-16 20:00] VITALS: RESP 18; O2SAT 95
[2024-03-16] MEDS: acetaminophen 325mg tablet PO PRN (20:20)
[2024-03-16] MEDS: enoxaparin 40mg/0.4ml syringe SQ SCH (20:21)
[2024-03-16 22:00] VITALS: BP 193/70; RESP 13; TEMP 96.3; O2SAT 97
[2024-03-16] MEDS: insulin glargine (Lantus) pen - multi-dose SQ SCH (22:13)
[2024-03-17] MEDS: hydrALAZINE 20mg/ml inj. IV PRN (01:17)
[2024-03-17 02:00] VITALS: BP 132/81; RESP 18; TEMP 98.1; O2SAT 96
[2024-03-17 05:57] LABS: BASOPHILS # (AUTO) 0.1 X10'3 (0-0.2); BASOPHILS % (AUTO) 1.1 % (0-1); EOSINOPHILS # (AUTO) 0.3 X10'3 (0-0.9); EOSINOPHILS % (AUTO) 2.4 % (0-6); HEMATOCRIT 45.6 % (42.0-52.0); HEMOGLOBIN 14.4 g/dl (14.0-17.9); LYMPHOCYTES # (AUTO) 1.1 X10'3 (1.1-4.8); LYMPHOCYTES % (AUTO) 9.9 % (21-51); MEAN CORPUSCULAR HEMOGLOBIN 25.7 PG (27.0-31.0); MEAN CORPUSCULAR HGB CONC 31.6 g/dL (33.0-36.5); MEAN CORPUSCULAR VOLUME 81.4 FL (78-98); MEAN PLATELET VOLUME 7.5 FL (7.4-10.4); MONOCYTES # (AUTO) 0.7 X10'3 (0-0.9); MONOCYTES % (AUTO) 6.1 % (2-12); NEUTROPHILS # (AUTO) 9.3 X10'3 (1.8-7.7); NEUTROPHILS % (AUTO) 80.5 % (42-75); PLATELET COUNT 229 X10'3 (140-440); RED CELL DISTRIBUTION WIDTH 17.8 % (11.5-14.5); WHITE BLOOD COUNT 11.5 X10'3 (4.5-11.0)
[2024-03-17 06:12] LABS: ALANINE AMINOTRANSFERASE 19 U/L (12-78); ALBUMIN 3.2 G/DL (3.4-5.0); ALBUMIN/GLOBULIN RATIO 0.8 (1.1-1.5); ALKALINE PHOSPHATASE 96 IU/L (46-116); ANION GAP 8 (8-16); ASPARTATE AMINO TRANSFERASE 16 U/L (10-37); BILIRUBIN,TOTAL 1.3 MG/DL (0.1-1.0); BLOOD UREA NITROGEN 23 MG/DL (7-18); BUN/CREATININE RATIO 17.4 (10.0-20.0); CALCIUM 9.7 MG/DL (8.5-10.1); CHLORIDE 105 MMOL/L (99-107); CREATININE 1.32 MG/DL (0.60-1.10); GLUCOSE 155 MG/DL (70-104); MAGNESIUM 2.1 MG/DL (1.5-2.4); POTASSIUM 3.8 MMOL/L (3.5-5.1); SODIUM 138 MMOL/L (135-145); TOTAL CARBON DIOXIDE 25.1 MMOL/L (24-32); eCRCL 51 ML/MIN; eGFR 53 ML/MIN
[2024-03-17 07:00] VITALS: BP 155/65; PULSE 70; RESP 18; TEMP 97.3; O2SAT 94
[2024-03-17 08:00] VITALS: RESP 21; O2SAT 94
[2024-03-17] MEDS: losartan 50mg tablet PO SCH (08:11)
[2024-03-17] MEDS: metoprolol succinate 25mg (24-HOUR) SR. Tablet PO SCH (08:11)
[2024-03-17] MEDS: EMPAGLIFLOZIN 10 MG TABLET PO SCH (08:12)
[2024-03-17] MEDS: aspirin 81mg, enteric-coated 1 TAB TABLET.DR PO SCH (08:13)
[2024-03-17] MEDS: atorvastatin 20mg tablet PO SCH (08:14)
[2024-03-17] MEDS: tamsulosin 0.4mg capsule PO SCH (08:20)
[2024-03-17] MEDS: INSULIN LISPRO 100 UNIT/ML INSULN.PEN MULTI-DOSE SQ SCH (10:13)
[2024-03-17] MEDS: FINERENONE 10 MG PO SCH (10:58)
[2024-03-17 11:00] VITALS: BP 133/53; PULSE 82; RESP 21; TEMP 97.9; O2SAT 97
[2024-03-17 15:00] VITALS: BP 135/60; PULSE 73; RESP 16; TEMP 98.1; O2SAT 94
[2024-03-17] MEDS ORDERED: insulin glargine (Lantus) pen - multi-dose SQ SCH (21:00)
== END 2024-03-17 18:15 | disposition home or self-care (01) | DRG 291 ==
LOC: ER 00:31 → ED HOLD 04:24 → PCU 3S 10:00
PROVIDERS: ADMIT Internal Medicine Sleep Medicine; ATTEND Family Medicine
DX: I13.0 Hypertensive heart and chronic kidney disease with heart failure and stage 1 through stage 4 chronic kidney disease, or unspecified chronic kidney disease (principal); I50.33 Acute on chronic diastolic (congestive) heart failure; I16.1 Hypertensive emergency; M25.561 Pain in right knee; E78.00 Pure hypercholesterolemia, unspecified; E11.22 Type 2 diabetes mellitus with diabetic chronic kidney disease; N40.0 Benign prostatic hyperplasia without lower urinary tract symptoms; N18.30 Chronic kidney disease, stage 3 unspecified; Z80.3 Family history of malignant neoplasm of breast; Z86.73 Personal history of transient ischemic attack (TIA), and cerebral infarction without residual deficits; Z79.82 Long term (current) use of aspirin; Z79.899 Other long term (current) drug therapy
CPT/HCPCS: 36415; 71045; 80053; 81001; 82948; 83036; 83735; 83880; 84484; 85025; 85379; 87081; 90686; 93005; 96365; 96375; 97110; 97161; 97530; 99285; G0378; J0360; J1650; J1815; J1940; J3490

== ENCOUNTER 2024-04-05 18:30 | Emergency (ER) | payer MEDICARE, MEDICAID ==
[~2024-04-05] VITALS: Ht 175.3 cm; Wt 104.0 kg
[~2024-04-05 18:30] MED LIST changes: +CLOP-32 PO; +HYDR50TA46 PO; +NOR5T PO; -POTA-206 PO
[2024-04-05] MEDS ORDERED: iohexol 350MG/ML 100ml bottle IV ONE (19:09)
[2024-04-05 19:27] LABS: BASOPHILS # (AUTO) 0.1 X10'3 (0-0.2); BASOPHILS % (AUTO) 1.3 % (0-1); EOSINOPHILS # (AUTO) 0.2 X10'3 (0-0.9); HEMATOCRIT 43.2 % (42.0-52.0); LYMPHOCYTES # (AUTO) 0.9 X10'3 (1.1-4.8); LYMPHOCYTES % (AUTO) 10.8 % (21-51); MEAN CORPUSCULAR HEMOGLOBIN 26.2 PG (27.0-31.0); MEAN CORPUSCULAR HGB CONC 32.4 g/dL (33.0-36.5); MEAN CORPUSCULAR VOLUME 80.9 FL (78-98); MEAN PLATELET VOLUME 7.2 FL (7.4-10.4); MONOCYTES # (AUTO) 0.6 X10'3 (0-0.9); MONOCYTES % (AUTO) 7.7 % (2-12); NEUTROPHILS # (AUTO) 6.5 X10'3 (1.8-7.7); NEUTROPHILS % (AUTO) 78.2 % (42-75); PLATELET COUNT 207 X10'3 (140-440); RED BLOOD COUNT 5.34 X10'6 (4.70-6.10); RED CELL DISTRIBUTION WIDTH 17.8 % (11.5-14.5); WHITE BLOOD COUNT 8.3 X10'3 (4.5-11.0)
[2024-04-05 19:39] LABS: APTT 27 SECONDS (22-32); INR 1.1 INR; PROTHROMBIN TIME 11.3 SECONDS (9.0-12.0)
[2024-04-05 19:42] LABS: ALANINE AMINOTRANSFERASE 17 U/L (12-78); ALBUMIN/GLOBULIN RATIO 0.9 (1.1-1.5); ALKALINE PHOSPHATASE 74 IU/L (46-116); ANION GAP 5 (8-16); ASPARTATE AMINO TRANSFERASE 17 U/L (10-37); BILIRUBIN,TOTAL 1.4 MG/DL (0.1-1.0); BLOOD UREA NITROGEN 19 MG/DL (7-18); BUN/CREATININE RATIO 13.9 (10.0-20.0); CALCIUM 9.2 MG/DL (8.5-10.1); CHLORIDE 105 MMOL/L (99-107); CREATININE 1.37 MG/DL (0.60-1.10); GLUCOSE 138 MG/DL (70-104); POTASSIUM 3.6 MMOL/L (3.5-5.1); SODIUM 137 MMOL/L (135-145); TOTAL PROTEIN 6.2 G/DL (6.4-8.2); eCRCL 49 ML/MIN; eGFR 51 ML/MIN
[2024-04-05] MEDS ORDERED: furosemide 40 MG/4 ML oral solution UD cup PO STA (23:07)
[2024-04-05] MEDS ORDERED: hyDRALAzine 10mg tablet PO STA (23:07)
[2024-04-05] MEDS ORDERED: metoprolol tartrate 50mg tablet PO ONE (23:10)
[2024-04-05] MEDS: metoprolol tartrate 25mg tablet PO ONE (23:19)
[2024-04-05] MEDS: furosemide 40mg tablet PO STA (23:20)
[2024-04-05] MEDS: amLODIPine 5mg tablet PO ONE (23:21)
[2024-04-05] MEDS: hydrALAZINE 25 MG tablet PO STA (23:22)
[2024-04-06 06:46] VITALS: BP 132/74; PULSE 74; RESP 16; TEMP 98.1; O2SAT 97
== END 2024-04-06 06:54 | disposition home or self-care (01) ==
LOC: ER 18:30
DX: H02.403 Unspecified ptosis of bilateral eyelids (principal); I13.0 Hypertensive heart and chronic kidney disease with heart failure and stage 1 through stage 4 chronic kidney disease, or unspecified chronic kidney disease; I50.9 Heart failure, unspecified; N18.9 Chronic kidney disease, unspecified; E78.00 Pure hypercholesterolemia, unspecified; R51.9 Headache, unspecified; Z79.51 Long term (current) use of inhaled steroids; Z79.899 Other long term (current) drug therapy; Z79.84 Long term (current) use of oral hypoglycemic drugs
CPT/HCPCS: 36415; 70450; 70480; 71045; 80053; 82948; 85025; 85610; 85730; 93005; 99285; A4615; Q9967

== ENCOUNTER 2024-07-15 10:28 | Emergency (ER) | payer MEDICARE, MEDICAID ==
[~2024-07-15] VITALS: Ht 175.3 cm; Wt 104.5 kg
[~2024-07-15 10:28] MED LIST changes: +LACT1CAP26 PO; -METF-1203 PO
[2024-07-15 13:07] VITALS: TEMP 97.9
[2024-07-15 13:30] LABS: BASOPHILS # (AUTO) 0.1 X10'3 (0-0.2); BASOPHILS % (AUTO) 1.2 % (0-1); EOSINOPHILS # (AUTO) 0.2 X10'3 (0-0.9); EOSINOPHILS % (AUTO) 1.6 % (0-6); HEMATOCRIT 44.4 % (42.0-52.0); HEMOGLOBIN 14.3 g/dl (14.0-17.9); LYMPHOCYTES % (AUTO) 9.6 % (21-51); MEAN CORPUSCULAR HEMOGLOBIN 26.9 PG (27.0-31.0); MEAN CORPUSCULAR HGB CONC 32.2 g/dL (33.0-36.5); MEAN CORPUSCULAR VOLUME 83.4 FL (78-98); MEAN PLATELET VOLUME 6.9 FL (7.4-10.4); MONOCYTES # (AUTO) 0.6 X10'3 (0-0.9); MONOCYTES % (AUTO) 5.5 % (2-12); NEUTROPHILS # (AUTO) 8.3 X10'3 (1.8-7.7); NEUTROPHILS % (AUTO) 82.1 % (42-75); PLATELET COUNT 300 X10'3 (140-440); RED BLOOD COUNT 5.33 X10'6 (4.70-6.10); RED CELL DISTRIBUTION WIDTH 18.9 % (11.5-14.5); WHITE BLOOD COUNT 10.1 X10'3 (4.5-11.0)
[2024-07-15] MEDS: hydrALAZINE 20mg/ml inj. IV ONE (13:36)
[2024-07-15 13:50] LABS: ANION GAP 8 (8-16); BLOOD UREA NITROGEN 17 MG/DL (7-18); BUN/CREATININE RATIO 14.2 (10.0-20.0); CHLORIDE 103 MMOL/L (99-107); GLUCOSE 120 MG/DL (70-104); POTASSIUM 3.9 MMOL/L (3.5-5.1); SODIUM 137 MMOL/L (135-145); TOTAL CARBON DIOXIDE 26.5 MMOL/L (24-32); eCRCL 56 ML/MIN; eGFR 60 ML/MIN
[2024-07-15 13:57] LABS: BILIRUBIN,URINE NEGATIVE (Neg); CLARITY,URINE CLEAR (Clear); COLOR,URINE YELLOW (Yellow); GLUCOSE, URINE NEGATIVE (Neg); KETONES,URINE NEGATIVE (Neg); LEUKOCYTE ESTERASE ,URINE NEGATIVE (Neg); NITRITES, URINE NEGATIVE (Neg); OCCULT BLOOD,URINE TRACE-INTACT (Neg); PH,URINE 6.5 (4.8-8.0); PROTEIN,URINE >=300 mg/dl (Neg); UROBILINOGEN,URINE 0.2 E.U/dL (0.2-1.0)
[2024-07-15 14:02] LABS: UA COLLECTION TYPE VOIDED
[2024-07-15 14:05] LABS: ANISOCYTOSIS 2+; PLATELET ESTIMATE NORMAL
[2024-07-15 14:07] LABS: BACTERIA,URINE FEW /HPF (Neg); MUCUS STRANDS NONE SEEN /LPF (Neg); SQUAMOUS EPITHELIAL CELL,UR FEW /LPF (FEW)
[2024-07-15] MEDS ORDERED: CEPH-585 PO (14:35)
[2024-07-15] MEDS ORDERED: SULF-14 PO (14:35)
[2024-07-15 14:59] VITALS: BP 138/65; PULSE 74; RESP 16; O2SAT 98
== END 2024-07-15 15:35 | disposition home or self-care (01) ==
LOC: ER 10:29
DX: S81.802A Unspecified open wound, left lower leg, initial encounter (principal); E11.22 Type 2 diabetes mellitus with diabetic chronic kidney disease; I13.0 Hypertensive heart and chronic kidney disease with heart failure and stage 1 through stage 4 chronic kidney disease, or unspecified chronic kidney disease; I50.33 Acute on chronic diastolic (congestive) heart failure; N18.9 Chronic kidney disease, unspecified; E78.00 Pure hypercholesterolemia, unspecified; Z79.82 Long term (current) use of aspirin; X58.XXXA Exposure to other specified factors, initial encounter; Y93.89 Activity, other specified; Y92.89 Other specified places as the place of occurrence of the external cause; Y99.8 Other external cause status
CPT/HCPCS: 36415; 80048; 81001; 82948; 83605; 84145; 85008; 85025; 87040; 87088; 96374; 99284; A6223; A6258; A6446; A6449; J0360; J7030

== ENCOUNTER 2024-07-18 03:24 | Emergency (ER) | payer MEDICARE, MEDICAID ==
[~2024-07-18] VITALS: Ht 175.3 cm; Wt 99.0 kg
[~2024-07-18 03:24] MED LIST changes: +CEPH-585 PO; +SULF-14 PO
[2024-07-18 03:27] VITALS: BP 167/65; PULSE 68; RESP 14; TEMP 96.6; O2SAT 96
[2024-07-18] MEDS: acetaminophen 325mg tablet PO ONE (03:54)
[2024-07-18] MEDS: ibuprofen tablet 400 MG TABLET PO ONE (03:55)
== END 2024-07-18 04:18 | disposition home or self-care (01) ==
LOC: ER 03:24
DX: G89.29 Other chronic pain (principal); M54.89 Other dorsalgia; I13.0 Hypertensive heart and chronic kidney disease with heart failure and stage 1 through stage 4 chronic kidney disease, or unspecified chronic kidney disease; I50.9 Heart failure, unspecified; N18.9 Chronic kidney disease, unspecified; E78.00 Pure hypercholesterolemia, unspecified; Z79.899 Other long term (current) drug therapy; Z79.52 Long term (current) use of systemic steroids
CPT/HCPCS: 99283

== ENCOUNTER 2024-07-20 10:19 | Inpatient (IN) | payer MEDICARE, MEDICAID ==
[~2024-07-20] VITALS: Ht 327.7 cm; Wt 90.9 kg
[2024-07-20] MEDS ORDERED: iohexol 350MG/ML 100ml bottle IV ONE (11:19)
[2024-07-20 11:41] LABS: BASOPHILS # (AUTO) 0.1 X10'3 (0-0.2); BASOPHILS % (AUTO) 1.4 % (0-1); EOSINOPHILS # (AUTO) 0.1 X10'3 (0-0.9); EOSINOPHILS % (AUTO) 0.7 % (0-6); HEMATOCRIT 40.1 % (42.0-52.0); HEMOGLOBIN 12.8 g/dl (14.0-17.9); LYMPHOCYTES # (AUTO) 1.1 X10'3 (1.1-4.8); LYMPHOCYTES % (AUTO) 12.3 % (21-51); MEAN CORPUSCULAR HEMOGLOBIN 26.8 PG (27.0-31.0); MEAN CORPUSCULAR VOLUME 83.6 FL (78-98); MEAN PLATELET VOLUME 7.6 FL (7.4-10.4); MONOCYTES # (AUTO) 0.8 X10'3 (0-0.9); MONOCYTES % (AUTO) 8.7 % (2-12); NEUTROPHILS % (AUTO) 76.9 % (42-75); PLATELET COUNT 219 X10'3 (140-440); RED CELL DISTRIBUTION WIDTH 18.6 % (11.5-14.5); WHITE BLOOD COUNT 9.1 X10'3 (4.5-11.0)
[2024-07-20 11:49] LABS: INR 1.2 INR
[2024-07-20 11:53] LABS: ALANINE AMINOTRANSFERASE 65 U/L (12-78); ALBUMIN 2.9 G/DL (3.4-5.0); ALBUMIN/GLOBULIN RATIO 0.9 (1.1-1.5); ALKALINE PHOSPHATASE 101 IU/L (46-116); ANION GAP 8 (8-16); ASPARTATE AMINO TRANSFERASE 25 U/L (10-37); BILIRUBIN,TOTAL 1.4 MG/DL (0.1-1.0); BLOOD UREA NITROGEN 32 MG/DL (7-18); BUN/CREATININE RATIO 20.5 (10.0-20.0); CALCIUM 9.3 MG/DL (8.5-10.1); CHLORIDE 111 MMOL/L (99-107); CREATININE 1.56 MG/DL (0.60-1.10); GLUCOSE 133 MG/DL (70-104); POTASSIUM 3.4 MMOL/L (3.5-5.1); SODIUM 142 MMOL/L (135-145); TOTAL CARBON DIOXIDE 22.8 MMOL/L (24-32); TOTAL PROTEIN 6.2 G/DL (6.4-8.2); eCRCL 43 ML/MIN; eGFR 44 ML/MIN
[2024-07-20 12:01] LABS: PRO BRAIN NATRIURETIC PEPTIDE 20968 PG/ML (0-125)
[2024-07-20 12:08] LABS: ETHANOL < 10 MG/DL (<10)
[2024-07-20] MEDS: labetalol 20mg/4ml (5mg/ml) syringe IV ONE (13:48)
[2024-07-20] MEDS ORDERED: furosemide 10 MG/1 ML 10ml inj IV ONE (14:05)
[2024-07-20] MEDS: furosemide 40mg/4ml inj IV ONE (14:12)
[2024-07-20] MEDS ORDERED: magnesium sulf-water 4G/100mL 100 ML IV PRN (15:20)
[2024-07-20] MEDS ORDERED: potassium Cl 20 mEq SR tablet PO PRN (15:20)
[2024-07-20] MEDS ORDERED: acetaminophen 325mg tablet PO PRN (15:20)
[2024-07-20] MEDS ORDERED: magnesium Cl slow-release 64mg tablet PO PRN (15:20)
[2024-07-20] MEDS ORDERED: mag hydrox/Alum hydrox/simeth 30ml oral suspension PO PRN (15:20)
[2024-07-20] MEDS ORDERED: potassium Cl 40MEQ/1/2NS 520ml 520 ML IV PRN (15:20)
[2024-07-20] MEDS ORDERED: magnesium hydroxide 30ml (MOM) UD suspension PO PRN (15:20)
[2024-07-20] MEDS ORDERED: ondansetron/PF 4mg/2ml inj IV PRN (15:20)
[2024-07-20] MEDS ORDERED: magnesium sulf-water 2g/50mL 50 ML IV PRN (15:20)
[2024-07-20] MEDS: aspirin 81mg, enteric-coated 1 TAB TABLET.DR PO SCH (15:33)
[2024-07-20] MEDS: clopidogrel 75mg tablet PO SCH (15:33)
[2024-07-20 15:49] LABS: URINE AMPHETAMINE SCREEN NEGATIVE (Neg); URINE BARBITUATE SCREEN NEGATIVE (Neg); URINE BENZODIAZEPINES SCREEN NEGATIVE (Neg); URINE CANNABINOID SCREEN NEGATIVE (Neg); URINE COCAINE SCREEN NEGATIVE (Neg); URINE METHADONE SCREEN NEGATIVE (Neg); URINE OPIATE SCREEN NEGATIVE (Neg); URINE PHENCYCLIDINE SCREEN NEGATIVE (Neg)
[2024-07-20 15:55] LABS: APTT 26 SECONDS (22-32); INR 1.1 INR; PROTHROMBIN TIME 11.7 SECONDS (9.0-12.0)
[2024-07-20 16:25] LABS: BILIRUBIN,URINE NEGATIVE (Neg); CLARITY,URINE CLEAR (Clear); COLOR,URINE YELLOW (Yellow); GLUCOSE, URINE NEGATIVE (Neg); KETONES,URINE NEGATIVE (Neg); LEUKOCYTE ESTERASE ,URINE NEGATIVE (Neg); NITRITES, URINE NEGATIVE (Neg); OCCULT BLOOD,URINE SMALL (Neg); PROTEIN,URINE >=300 mg/dl (Neg); UROBILINOGEN,URINE 0.2 E.U/dL (0.2-1.0)
[2024-07-20 16:34] LABS: UA COLLECTION TYPE VOIDED
[2024-07-20 16:35] LABS: BACTERIA,URINE NONE SEEN /HPF (Neg); MUCUS STRANDS FEW /LPF (Neg); RBC,URINE NONE SEEN /HPF (0-2); SQUAMOUS EPITHELIAL CELL,UR FEW /LPF (FEW); WBC,URINE NONE SEEN /HPF (0-4)
[2024-07-20] MEDS ORDERED: glucagon, human recombinant 1mg kit SUBCUT PRN (17:55)
[2024-07-20] MEDS ORDERED: dextrose 50%-water 50ml dispensing syringe IV PRN ×2 (17:55)
[2024-07-20] MEDS ORDERED: DEXTROSE 15 GM of carb/4 tabs (each vial/BOTTLE has 4 tablets) PO PRN ×2 (17:55)
[2024-07-20] MEDS: amLODIPine 5mg tablet PO ONE (17:57)
[2024-07-20] MEDS: atorvastatin 20mg tablet PO SCH (17:57)
[2024-07-20 19:02] VITALS: BP 176/91; PULSE 70; RESP 19; TEMP 96.9; O2SAT 98
[2024-07-20 19:16] LABS: OSMOLALITY 309 MOSM/K (280-300)
[2024-07-20] MEDS: losartan 50mg tablet PO SCH (19:54)
[2024-07-20] MEDS: furosemide 40mg/4ml inj IV SCH (19:55)
[2024-07-20] MEDS: heparin, porcine 5000 units/ml vial SQ SCH (19:55)
[2024-07-20] MEDS: docusate sod 100mg capsule PO SCH (20:00)
[2024-07-20] MEDS: K and/or MAG REPLACEMENT MC SCH (20:00)
[2024-07-20] MEDS: tamsulosin 0.4mg capsule PO SCH (20:01)
[2024-07-20] MEDS: HYDROcodone/acetaminophen 10/325mg tab PO ONE (21:33)
[2024-07-20] MEDS: potassium Cl 20 mEq SR tablet PO PRN (21:33)
[2024-07-20 22:00] VITALS: BP 185/79; PULSE 66; RESP 22; TEMP 97; O2SAT 99
[2024-07-20] MEDS: INSULIN LISPRO 100 UNIT/ML INSULN.PEN MULTI-DOSE SQ SCH (22:31)
[2024-07-20 23:27] VITALS: RESP 19; O2SAT 98
[2024-07-20] MEDS: hydrALAZINE 20mg/ml inj. IV PRN (23:55)
[2024-07-21] VITALS (7 sets, daily range): BP systolic 133–174; BP diastolic 50–84; PULSE 60–75; RESP 16–24; TEMP 97.4–98.3; O2SAT 93–100
[2024-07-21 06:55] LABS: ALANINE AMINOTRANSFERASE 60 U/L (12-78); ALBUMIN 2.7 G/DL (3.4-5.0); ALBUMIN/GLOBULIN RATIO 0.8 (1.1-1.5); ALKALINE PHOSPHATASE 96 IU/L (46-116); ANION GAP 10 (8-16); ASPARTATE AMINO TRANSFERASE 28 U/L (10-37); BILIRUBIN,TOTAL 1.6 MG/DL (0.1-1.0); BLOOD UREA NITROGEN 25 MG/DL (7-18); BUN/CREATININE RATIO 16.7 (10.0-20.0); CALCIUM 9.4 MG/DL (8.5-10.1); CHLORIDE 107 MMOL/L (99-107); GLUCOSE 150 MG/DL (70-104); POTASSIUM 3.5 MMOL/L (3.5-5.1); SODIUM 141 MMOL/L (135-145); TOTAL CARBON DIOXIDE 24.1 MMOL/L (24-32); TOTAL PROTEIN 6.3 G/DL (6.4-8.2); eCRCL 57 ML/MIN; eGFR 46 ML/MIN
[2024-07-21 06:58] LABS: MAGNESIUM 1.9 MG/DL (1.5-2.4)
[2024-07-21 07:02] LABS: BASOPHILS # (AUTO) 0.1 X10'3 (0-0.2); EOSINOPHILS # (AUTO) 0.1 X10'3 (0-0.9); EOSINOPHILS % (AUTO) 1.5 % (0-6); HEMATOCRIT 41.4 % (42.0-52.0); HEMOGLOBIN 13.3 g/dl (14.0-17.9); LYMPHOCYTES % (AUTO) 12.1 % (21-51); MEAN CORPUSCULAR HEMOGLOBIN 26.8 PG (27.0-31.0); MEAN CORPUSCULAR HGB CONC 32.1 g/dL (33.0-36.5); MEAN CORPUSCULAR VOLUME 83.4 FL (78-98); MEAN PLATELET VOLUME 8.2 FL (7.4-10.4); MONOCYTES # (AUTO) 0.7 X10'3 (0-0.9); MONOCYTES % (AUTO) 8.1 % (2-12); NEUTROPHILS # (AUTO) 6.6 X10'3 (1.8-7.7); NEUTROPHILS % (AUTO) 77.3 % (42-75); PLATELET COUNT 221 X10'3 (140-440); RED BLOOD COUNT 4.97 X10'6 (4.70-6.10); RED CELL DISTRIBUTION WIDTH 18.6 % (11.5-14.5); WHITE BLOOD COUNT 8.5 X10'3 (4.5-11.0)
[2024-07-21] MEDS: amLODIPine 5mg tablet PO SCH (08:37)
[2024-07-21] MEDS: metoprolol succinate 25mg (24-HOUR) SR. Tablet PO SCH (08:38)
[2024-07-21] MEDS: pantoprazole 40mg Tablet.DR PO SCH (08:38)
[2024-07-21] MEDS: EMPAGLIFLOZIN 10 MG TABLET PO SCH (08:38)
[2024-07-21] MEDS: nystatin 15 GM powder TP SCH (20:44)
[2024-07-22] VITALS (8 sets, daily range): BP systolic 123–168; BP diastolic 48–60; PULSE 58–72; RESP 12–24; TEMP 97.1–98.3; O2SAT 92–99
[2024-07-22 06:40] LABS: BASOPHILS # (AUTO) 0.1 X10'3 (0-0.2); BASOPHILS % (AUTO) 0.9 % (0-1); EOSINOPHILS # (AUTO) 0.2 X10'3 (0-0.9); EOSINOPHILS % (AUTO) 2.1 % (0-6); HEMATOCRIT 40.8 % (42.0-52.0); HEMOGLOBIN 13.2 g/dl (14.0-17.9); LYMPHOCYTES # (AUTO) 0.8 X10'3 (1.1-4.8); LYMPHOCYTES % (AUTO) 9.2 % (21-51); MEAN CORPUSCULAR HGB CONC 32.3 g/dL (33.0-36.5); MEAN CORPUSCULAR VOLUME 83.5 FL (78-98); MEAN PLATELET VOLUME 7.6 FL (7.4-10.4); MONOCYTES # (AUTO) 0.7 X10'3 (0-0.9); MONOCYTES % (AUTO) 7.9 % (2-12); NEUTROPHILS # (AUTO) 7.3 X10'3 (1.8-7.7); NEUTROPHILS % (AUTO) 79.9 % (42-75); PLATELET COUNT 227 X10'3 (140-440); RED BLOOD COUNT 4.89 X10'6 (4.70-6.10); RED CELL DISTRIBUTION WIDTH 18.2 % (11.5-14.5); WHITE BLOOD COUNT 9.1 X10'3 (4.5-11.0)
[2024-07-22 07:00] LABS: ALANINE AMINOTRANSFERASE 53 U/L (12-78); ALBUMIN/GLOBULIN RATIO 0.9 (1.1-1.5); ALKALINE PHOSPHATASE 92 IU/L (46-116); ANION GAP 9 (8-16); ASPARTATE AMINO TRANSFERASE 19 U/L (10-37); BILIRUBIN,TOTAL 1.6 MG/DL (0.1-1.0); BLOOD UREA NITROGEN 24 MG/DL (7-18); BUN/CREATININE RATIO 16.6 (10.0-20.0); CALCIUM 9.7 MG/DL (8.5-10.1); CHLORIDE 109 MMOL/L (99-107); CREATININE 1.45 MG/DL (0.60-1.10); GLUCOSE 113 MG/DL (70-104); MAGNESIUM 1.9 MG/DL (1.5-2.4); POTASSIUM 3.2 MMOL/L (3.5-5.1); SODIUM 145 MMOL/L (135-145); TOTAL CARBON DIOXIDE 27.2 MMOL/L (24-32); TOTAL PROTEIN 6.5 G/DL (6.4-8.2); eCRCL 59 ML/MIN; eGFR 48 ML/MIN
[2024-07-22] MEDS ORDERED: magnesium sulf-water 2g/50mL 50 ML IV PRN (07:40)
[2024-07-22] MEDS ORDERED: potassium Cl 40MEQ/1/2NS 520ml 520 ML IV PRN (07:40)
[2024-07-22] MEDS ORDERED: potassium Cl 20 mEq SR tablet PO PRN ×2 (07:40)
[2024-07-22] MEDS ORDERED: magnesium Cl slow-release 64mg tablet PO PRN (07:40)
[2024-07-22] MEDS ORDERED: magnesium sulf-water 4G/100mL 100 ML IV PRN (07:40)
[2024-07-22] MEDS: furosemide 40mg/4ml inj IV SCH (07:58)
[2024-07-22] MEDS: amLODIPine 5mg tablet PO SCH (08:01)
[2024-07-22] MEDS: K and/or MAG REPLACEMENT MC SCH (08:07)
[2024-07-22] MEDS ORDERED: NYSPWD TP (11:48)
[2024-07-22] MEDS: HYDROcodone/acetaminophen 5mg/325mg tablet PO PRN (20:56)
[2024-07-23 02:00] VITALS: BP 126/44; PULSE 54; RESP 16; TEMP 97.2; O2SAT 100
[2024-07-23 06:00] VITALS: BP 153/61; PULSE 61; RESP 61; TEMP 96.9; O2SAT 100
[2024-07-23 07:42] LABS: BASOPHILS # (AUTO) 0.1 X10'3 (0-0.2); BASOPHILS % (AUTO) 1.2 % (0-1); EOSINOPHILS # (AUTO) 0.2 X10'3 (0-0.9); EOSINOPHILS % (AUTO) 2.8 % (0-6); HEMATOCRIT 40.5 % (42.0-52.0); HEMOGLOBIN 12.9 g/dl (14.0-17.9); LYMPHOCYTES # (AUTO) 1.1 X10'3 (1.1-4.8); LYMPHOCYTES % (AUTO) 14.1 % (21-51); MEAN CORPUSCULAR HGB CONC 31.9 g/dL (33.0-36.5); MEAN CORPUSCULAR VOLUME 84.5 FL (78-98); MEAN PLATELET VOLUME 8.2 FL (7.4-10.4); MONOCYTES # (AUTO) 0.8 X10'3 (0-0.9); MONOCYTES % (AUTO) 10.3 % (2-12); NEUTROPHILS # (AUTO) 5.4 X10'3 (1.8-7.7); NEUTROPHILS % (AUTO) 71.6 % (42-75); PLATELET COUNT 218 X10'3 (140-440); RED BLOOD COUNT 4.79 X10'6 (4.70-6.10); RED CELL DISTRIBUTION WIDTH 18.2 % (11.5-14.5); WHITE BLOOD COUNT 7.6 X10'3 (4.5-11.0)
[2024-07-23 07:55] LABS: ALANINE AMINOTRANSFERASE 42 U/L (12-78); ALBUMIN 2.8 G/DL (3.4-5.0); ALBUMIN/GLOBULIN RATIO 0.8 (1.1-1.5); ALKALINE PHOSPHATASE 86 IU/L (46-116); ANION GAP 4 (8-16); ASPARTATE AMINO TRANSFERASE 18 U/L (10-37); BILIRUBIN,TOTAL 1.1 MG/DL (0.1-1.0); BLOOD UREA NITROGEN 26 MG/DL (7-18); BUN/CREATININE RATIO 17.8 (10.0-20.0); CALCIUM 9.3 MG/DL (8.5-10.1); CHLORIDE 106 MMOL/L (99-107); CREATININE 1.46 MG/DL (0.60-1.10); GLUCOSE 115 MG/DL (70-104); MAGNESIUM 1.9 MG/DL (1.5-2.4); POTASSIUM 3.9 MMOL/L (3.5-5.1); SODIUM 141 MMOL/L (135-145); TOTAL CARBON DIOXIDE 30.7 MMOL/L (24-32); TOTAL PROTEIN 6.4 G/DL (6.4-8.2); eCRCL 59 ML/MIN; eGFR 47 ML/MIN
[2024-07-23 08:00] VITALS: RESP 20; O2SAT 100
[2024-07-23 10:11] VITALS: BP_SYST 153; PULSE 61
== END 2024-07-23 15:40 | DRG 280 ==
LOC: ER 10:20 → ED HOLD 14:22 → PCU 3S 19:02
PROVIDERS: ADMIT Family Medicine; ATTEND Family Medicine
PROC: B3251ZZ Computerized Tomography (CT Scan) of Bilateral Common Carotid Arteries using Low Osmolar Contrast (ICD-10-PCS; principal; 2024-07-20)
PROC: B32G1ZZ Computerized Tomography (CT Scan) of Bilateral Vertebral Arteries using Low Osmolar Contrast (ICD-10-PCS; 2024-07-20)
PROC: B32R1ZZ Computerized Tomography (CT Scan) of Intracranial Arteries using Low Osmolar Contrast (ICD-10-PCS; 2024-07-20)
PROC: B3281ZZ Computerized Tomography (CT Scan) of Bilateral Internal Carotid Arteries using Low Osmolar Contrast (ICD-10-PCS; 2024-07-20)
DX: I13.0 Hypertensive heart and chronic kidney disease with heart failure and stage 1 through stage 4 chronic kidney disease, or unspecified chronic kidney disease (principal); I50.33 Acute on chronic diastolic (congestive) heart failure; I21.A1 Myocardial infarction type 2; N17.0 Acute kidney failure with tubular necrosis; G45.9 Transient cerebral ischemic attack, unspecified; Z59.00 Homelessness unspecified; N18.9 Chronic kidney disease, unspecified; E78.00 Pure hypercholesterolemia, unspecified; N40.0 Benign prostatic hyperplasia without lower urinary tract symptoms; Z79.82 Long term (current) use of aspirin; Z79.01 Long term (current) use of anticoagulants; Z79.899 Other long term (current) drug therapy; Z86.73 Personal history of transient ischemic attack (TIA), and cerebral infarction without residual deficits; Z91.148 Patient's other noncompliance with medication regimen for other reason
CPT/HCPCS: 36415; 70450; 70496; 70498; 71045; 80053; 80305; 80320; 81001; 82948; 83735; 83880; 83930; 84484; 85025; 85610; 85730; 87081; 93005; 96374; 96375; 97116; 97161; 97530; 99285; A4615; A6212; A6250; A6446; A6449; G0378; J0360; J1644; J1815; J1940; J3490; Q9967